=== PATIENT | female | born 1970 | race African-American/Black ===

== ENCOUNTER 2017-01-30 10:23 | Outpatient (CLI) | payer MEDICARE, MEDICAID ==
--- NOTE | 2017-01-30 13:44 | PRG ---
DATE OF SERVICE: 01/30/2017 HISTORY: Ms. Mouna Mitchell is a very pleasant 46-year-old who [facility] aluation of wounds of the right and left feet subsequent to amputation of the right first toe and me tatarsal in addition to the left fourth and fifth toes and metatarsals on 08/12/2015. On 11/18/2015 , Ms. Mitchell underwent amputation of the left second and third toes and metatarsals by Dr. Cedeno. The patient states that she has not been able to stay off her feet as much as she would like. She a lso states that she ran out of Multidex powder for use at the time of dressing changes. The patient denies any fever or chills. PHYSICAL EXAMINATION: VITAL SIGNS: Temperature 98.6, pulse 99, respirations 18, blood pressure 135/84, Accu-Chek 249. EXTREMITIES: A wound of the right foot is present which measures approximately 3.7 x 4.0 cm. A wou nd of the left foot is present which measures approximately 6.0 x 2.5 cm. The dimensions of these w ounds at the time of the patient's last visit were approximately 2.8 x 3.5 cm and 2.4 x 4.0 cm respe ctively. Both wounds are granulating. Nonviable tissue present within the margins of each wound wa s debrided with an excisional full-thickness debridement. Callus undermining and desiccated tissue at the periphery of each wound were eliminated with the use of scissors. No purulent drainage is as sociated with either wound. No erythema of the skin surrounding either wound is present. No macera tion of the skin of the periwound of either wound is noted. A dorsalis pedis pulse is palpable on t he right and on the left. Edema of the right and left feet is present on exam today. ASSESSMENT AND PLAN: 1. Wounds of right and left feet subsequent to surgery on 08/12/2015, followed by Surgery on 2015. Specifically, the patient underwent amputation of the right first toe and metatarsal and ampu tation of the left fourth and fifth toes and metatarsals on 08/12/2015, and amputation of the left s econd and third toes and metatarsals on 11/18/2015. Dressing changes of Multidex powder, 4 x 4s, AB Ds, Kerlix, and Oz bandages will be continued on a daily basis after cleansing and irrigation. The patient has been given a prescription for a motorized wheelchair. The patient is also in the proce ss of obtaining diabetic shoes with inserts. I will see Ms. Mitchell again in four weeks. 2. Diabetes mellitus. The patient's Accu-Chek in clinic today is 249. The patient has been remind ed that for optimal wound healing, her blood glucoses should remain below 150. 3. History of hypothyroidism. 4. History of obstructive sleep apnea. 5. History of hypertension.
[2017-01-30] MEDS ORDERED: Sodium Chloride 0.9% 15 ML NEB ONE (17:26)
[2017-01-30] MEDS ORDERED: Lidocaine 2% Jelly 5 ML TUBE ONE (17:26)
== END 2017-01-30 10:24 | disposition home or self-care (01) ==
LOC: WCC 10:23
PROVIDERS: ATTEND Family Medicine
DX: T81.89XD Other complications of procedures, not elsewhere classified, subsequent encounter (principal); E11.9 Type 2 diabetes mellitus without complications; Z86.79 Personal history of other diseases of the circulatory system; Z86.39 Personal history of other endocrine, nutritional and metabolic disease; Z87.09 Personal history of other diseases of the respiratory system
CPT/HCPCS: 11042; 36416; A4218

== ENCOUNTER 2017-03-27 10:27 | Outpatient (CLI) | payer MEDICARE, OTHER ==
--- NOTE | 2017-03-27 14:40 | PRG ---
DATE OF SERVICE: 03/27/2017 SUBJECTIVE: Ms. Mouna Mitchell is a very pleasant 46-year-old who presents to [facility] for evaluation of wounds of the right and left feet subsequent to amputation of the right first toe and m etatarsal in addition to the left fourth and fifth toes and metatarsals on 08/12/2015. On 11/18/2015 , Ms. Mitchell underwent amputation of the left second and third toes and metatarsals by Dr. Cedeno. Kayce romano the patient's last visit, Ms. Mitchell as been performing dressing changes of Multidex powder for her right and left foot wounds. The patient has no complaints today. She denies any fever or chills . She states that she has been able to stay off her feet to a greater extent than in the past. OBJECTIVE: VITAL SIGNS: Temperature 97.7, pulse 101, respirations 19 and blood pressure 158/79. Accu-Chek 268. EXTREMITIES: A wound of the right foot is present, which measures approximately 4.0 x 2.7 cm. A wou nd of the left foot is present, which measures approximately 3.6 x 2.2 cm. The dimensions of these w ounds at the time of the patient's last visit were approximately 3.7 x 4.0 cm and 6.0 x 2.5 cm, respe ctively. Both wounds are granulating. Nonviable tissue present within the margins of each wound was debrided with an excisional full-thickness debridement with the use of a curette. Callus underminin g and desiccated tissue at the periphery of each wound were excised with the use of scissors. No pur ulent drainage is associated with either wound. No erythema of the skin surrounding either wound is present. No maceration of the skin of the periwound of either wound is noted. No significant edema of the right or left foot is present on exam today. ASSESSMENT AND PLAN: 1. Wounds of right and left feet subsequent to surgery on 08/12/2015, followed by Surgery on 016. Specifically, the patient underwent amputation of the right first toe and metatarsal and amputa tion of the left fourth and fifth toes and metatarsals on 08/11/2016 and amputation of the left secon d and third toes and metatarsals on 11/18/2015. Dressing changes of Multidex powder, 4 x 4s, ABDs, K erlix, and Oz bandages will be continued on a daily basis after cleansing and irrigation. The patie nt was previously given a prescription for a motorized wheelchair. The patient previously stated yulia t she was in the process of obtaining diabetic shoes with inserts. I will see Ms. Mitchell again in fo ur weeks. 2. Diabetes mellitus. The patient's Accu-Chek in clinic today is 268. The patient has been reminde d that for optimal wound healing, her blood glucoses should remain below 150. 3. History of hypothyroidism. 4. History of obstructive sleep apnea. 5. History of hypertension.
== END 2017-03-27 10:28 | disposition home or self-care (01) ==
LOC: WCC 10:27
PROVIDERS: ATTEND Family Medicine
DX: T81.89XD Other complications of procedures, not elsewhere classified, subsequent encounter (principal); E11.9 Type 2 diabetes mellitus without complications; Z89.411 Acquired absence of right great toe; Z89.422 Acquired absence of other left toe(s)
CPT/HCPCS: 11042; 36416

== ENCOUNTER 2017-04-29 10:51 | Outpatient (CLI) | payer MEDICARE, MEDICAID ==
[~2017-04-29 10:51] MED LIST: Sodium Chloride 0.9% 15 ML NEB ONE
--- NOTE | 2017-04-29 12:02 | PRG ---
DATE OF SERVICE: 04/29/2017 HISTORY: Ms. Mouna Mitchell is a very pleasant 46-year-old who presents to the [facility] for evaluation of wounds of the right and left feet subsequent to amputation of the right first toe and metatarsal in addition to the left fourth and fifth toes and metatarsals on 08/12/2015. On 11/18/2015, Ms. Mitchell underwent amputation of the left second and third toes and metatarsals by Dr. Cedeno. Since the patient's last visit, Ms. Mitchell has been performing dressing changes of Multidex powder for her right and left foot wounds. The patient states that she has been on her feet more than usual since the beginning of the year. The patient has no complaints today. She denies any fever or chills. PHYSICAL EXAMINATION: VITAL SIGNS: Temperature 98.0, pulse 109, respirations 19, blood pressure 159/ 72. Accu-Chek 158. EXTREMITIES: A wound of the right foot is present which measures approximately 4.0 x 2.5 cm. A wound of the left foot is present which measures approximately 5.0 x 3.0 cm. The dimensions of these wounds at the time of the patient's last visit were approximately 4.0 x 2.7 cm and 3.6 x 2.2 cm respectively. Both wounds are granulating. Nonviable tissue present within the margins of each wound was debrided with an excisional full-thickness debridement with the use of scissors. Callus, undermining, and desiccated tissue at the periphery of each wound were also excised with the use of scissors. No purulent drainage is associated with either wound. No erythema of the skin surrounding either wound is present. No maceration of the skin of the periwound of either wound is noted. No significant edema of the right or left foot is present on exam today. ASSESSMENT AND PLAN: 1. Wounds of right and left feet subsequent to surgery on 08/12/2015 followed by surgery on 11/18/2015. Specifically, the patient underwent amputation of the right first toe and metatarsal and amputation of the left fourth and fifth toes and metatarsals on 08/11/2016 and amputation of the left second and third toes and metatarsals on 11/18/2015. Dressing changes of Multidex powder, 4 x 4s , ABDs, Kerlix, and Oz bandages will be continued on a daily basis after cleansing and irrigation. Coban will also be utilized at the time of dressing changes as needed. The patient apparently has received a motorized wheelchair. The patient has also received diabetic shoes with inserts. I will see Ms. Mitchell again in four weeks. 2. Diabetes mellitus. The patient's Accu-Chek in clinic today is 158. The patient has been reminded that for optimal wound healing, her blood glucoses should remain below 150. 3. History of hypothyroidism. 4. History of obstructive sleep apnea. 5. History of hypertension. MTDD
== END 2017-04-29 10:52 | disposition home or self-care (01) ==
LOC: WCC 10:51
PROVIDERS: ATTEND Family Medicine
DX: T81.89XD Other complications of procedures, not elsewhere classified, subsequent encounter (principal); Z89.411 Acquired absence of right great toe; Z89.421 Acquired absence of other right toe(s)
CPT/HCPCS: 11042; A4218

== ENCOUNTER 2017-05-27 11:17 | Outpatient (CLI) | payer MEDICARE, OTHER ==
--- NOTE | 2017-05-27 13:27 | PRG ---
DATE OF SERVICE: 05/27/2017 SUBJECTIVE: Ms. Mouna Mitchell is a very pleasant 46-year-old who presents to the [facility] f or evaluation of wounds of the right and left feet subsequent to amputation of the right first toe an d metatarsal in addition to the left fourth and fifth toes and metatarsals on 08/12/2015. On 016, Ms. Mitchell underwent amputation of the left second and third toes and metatarsals by Dr. Cedeno. Since the patient's last visit, Ms. Mitchell has been performing dressing changes of Multidex powder for her right and left foot wounds. The patient states that she has been trying her best to stay off her feet as much as possible. The patient has no complaints today. She denies any fever or chills. OBJECTIVE: VITAL SIGNS: Temperature 97.7, pulse 95, respirations 18 and blood pressure 149/76. Accu-Chek 269. EXTREMITIES: A wound of the right foot is present, which measures approximately 4.0 x 2.4 cm. A wou nd of the left foot is present, which measures approximately 4.0 x 2.6 cm. The dimensions of these w ounds at the time of the patient's last visit were approximately 4.0 x 2.5 cm and 5.0 x 3.0 cm, respe ctively. Both wounds are granulating. Nonviable tissue present within the margins of each wound was debrided with an excisional full-thickness debridement with the use of a curette. Callus underminin g and desiccated tissue at the periphery of each wound were excised with the use of scissors. No pur ulent drainage is associated with either wound. No erythema of the skin surrounding either wound is present. No maceration of the skin of the periwound of either wound is noted. A dorsalis pedis puls e is palpable on the right and on the left. No significant edema of the right or left foot is presen t on exam today. ASSESSMENT AND PLAN: 1. Wounds of right and left feet subsequent to surgery on 08/12/2015 followed by Surgery on 11/18/19 16. Specifically, the patient underwent amputation of the right first toe and metatarsal and amputat ion of the left fourth and fifth toes and metatarsals on 08/11/2016 and an amputation of the left sec ond and third toes and metatarsals on 11/18/2015. Dressing changes of Multidex powder, 4 x 4s, Kerli x, and Oz bandages will be continued on a daily basis after cleansing and irrigation. ABDs will als o be utilized at the time of dressing changes as needed. I will see Ms. Mitchell again in four weeks. 2. Diabetes mellitus. The patient's Accu-Chek in clinic today is 269. The patient has been reminde d that for optimal wound healing, her blood glucoses should remain below 150. 3. History of hypothyroidism. 4. History of obstructive sleep apnea. 5. History of hypertension.
== END 2017-05-27 11:18 | disposition home or self-care (01) ==
LOC: WCC 11:17
PROVIDERS: ATTEND Family Medicine
DX: T81.89XD Other complications of procedures, not elsewhere classified, subsequent encounter (principal); E11.9 Type 2 diabetes mellitus without complications; Z89.411 Acquired absence of right great toe; Z89.422 Acquired absence of other left toe(s); Z86.39 Personal history of other endocrine, nutritional and metabolic disease; Z87.09 Personal history of other diseases of the respiratory system; Z86.79 Personal history of other diseases of the circulatory system
CPT/HCPCS: 11042

== ENCOUNTER 2017-06-24 10:56 | Outpatient (CLI) | payer MEDICARE, OTHER ==
[2017-06-24] MEDS ORDERED: Lidocaine 2% Jelly 5 ML TUBE ONE (11:00)
[2017-06-24] MEDS ORDERED: Sodium Chloride 0.9% 15 ML NEB ONE (11:00)
--- NOTE | 2017-06-25 08:41 | PRG ---
DATE OF SERVICE: 06/24/2017 HISTORY: Ms. Mouna Mitchell is a very pleasant 46-year-old who presents to the [facility] for evaluation of wounds of the right and left feet subsequent to amputation of the right first toe and metatarsal in addition to the left fourth and fifth toes and metatarsals on 08/12/2015. On 6, Ms. Mitchell underwent amputation of the left second and third toes and metatarsals by Dr. Cedeno. Since her last visit, Ms. Mitchell states, she has been performing dressing changes of Multidex powder for her right and left foot wounds. Again, the patient states that she has been trying her best to s karen off her feet as much as possible. Ms. Mitchell has no complaints today. She denies any fever or c hills. PHYSICAL EXAMINATION: VITAL SIGNS: Temperature 97.7, pulse 105, respirations 19, blood pressure 150/91. Accu-Chek 213. EXTREMITIES: A wound of the right foot is present which measures approximately 3.9 x 3.0 cm. The di mensions of this wound at the time of the patient's last visit were approximately 4.0 x 2.4 cm. A wo und of the left foot is present which measures approximately 4.9 x 3.2 cm. The dimensions of this wo und at the time of the patient's last visit were approximately 4.0 x 2.6 cm. Both wounds are granula ting. Nonviable tissue present within the margins of each wound was debrided with an excisional full -thickness debridement. Callus undermining and desiccated tissue at the periphery of each wound were excised with the use of scissors. No purulent drainage is associated with either wound. No erythem a of the skin surrounding either wound is present. No maceration of the skin of the periwound of eit her wound is noted. A dorsalis pedis pulse is palpable on the right and on the left. No significant edema of the right or left foot is present on exam today. ASSESSMENT AND PLAN: 1. Wounds of right and left feet subsequent to surgery on 08/12/2015 followed by Surgery on 11/18/19 16. Specifically, the patient underwent amputation of the right first toe and metatarsal and amputat ion of the left fourth and fifth toes and metatarsals on 08/12/2015 and amputation of the left second and third toes and metatarsals on 11/18/2015. Dressing changes of Multidex powder, 4 x 4s, Kerlix, and Oz bandages will be continued on a daily basis after cleansing and irrigation. ABDs will also b e utilized at the time of dressing changes as needed. I will see Ms. Mitchell again in 4 weeks. 2. Diabetes mellitus. The patient's Accu-Chek in clinic today is 213. The patient has been reminde d that for optimal wound healing, her blood glucoses should remain below 150. 3. History of hypothyroidism. 4. History of obstructive sleep apnea. 5. History of hypertension.
== END 2017-06-24 10:57 | disposition home or self-care (01) ==
LOC: WCC 10:56
PROVIDERS: ATTEND Family Medicine
DX: T87.89 Other complications of amputation stump (principal); E11.621 Type 2 diabetes mellitus with foot ulcer; E11.42 Type 2 diabetes mellitus with diabetic polyneuropathy; L97.509 Non-pressure chronic ulcer of other part of unspecified foot with unspecified severity; E03.9 Hypothyroidism, unspecified; I10 Essential (primary) hypertension; Z89.411 Acquired absence of right great toe; Z89.422 Acquired absence of other left toe(s); Z86.69 Personal history of other diseases of the nervous system and sense organs
CPT/HCPCS: 11042; 36416; A4218

== ENCOUNTER 2017-09-30 10:58 | Outpatient (CLI) | payer MEDICARE, OTHER ==
[~2017-09-30 10:58] MED LIST changes: +Lidocaine 2% Jelly 5 ML TUBE ONE
--- NOTE | 2017-09-30 12:48 | PRG ---
DATE OF SERVICE: 09/30/2017 HISTORY: Ms. oMuna Mitchell is a very pleasant 46-year-old who presents to the [facility] for evaluation of wounds of the right and left feet subsequent to amputation of the right first toe and metatarsal in addition to the left fourth and fifth toes and metatarsals on 08/12/2015. On 6, Ms. Mitchell underwent amputation of the left second and third toes and metatarsals by Dr. Cedeno. Since the patient's last visit, Ms. Mitchell states she has been performing dressing changes of Multide x powder for her right and left foot wounds. Again, the patient states that she has been trying to s karen off her feet as much as possible. The patient has no complaints today. She denies any fever or chills. PHYSICAL EXAMINATION: VITAL SIGNS: Temperature 97.5, pulse 101, respirations 20, blood pressure 139/87. Accu-Chek 239. EXTREMITIES: A wound of the right foot is present which measures approximately 3.7 x 2.5 cm. The di mensions of this wound at the time of the patient's last visit were approximately 3.9 x 3.0 cm. A wo und of the left foot is present which measures approximately 3.7 x 2.0 cm. The dimensions of this wo und at the time of the patient's last visit were approximately 4.9 x 3.2 cm. Both wounds are granula ting. Callus undermining and desiccated tissue at the periphery of each wound were excised with the use of scissors. Nonviable tissue present within the margins of each wound was debrided with an exci sional full-thickness debridement also with the use of scissors. No purulent drainage is associated with either wound. No erythema of the skin surrounding either wound is present. No maceration of th e skin of the periwound of either wound is noted. No significant edema of the right or left foot is present on exam today. A fragment of bone from within the wound margins of 1 of 2 left foot wounds w as excised with the use of scissors. ASSESSMENT AND PLAN: 1. Wounds of right and left feet subsequent to surgery on 08/12/2015 followed by Surgery on 11/18/19 16. Specifically, the patient underwent amputation of the right first toe and metatarsal and amputat ion of the left fourth and fifth toes and metatarsals on 08/12/2015 and amputation of the left second and third toes and metatarsals on 11/18/2015. Dressing changes of Multidex powder, 4 x 4s, ABDs, Ke rlix, and Oz bandages will be continued on a daily basis after cleansing and irrigation. I will see Ms. Mitchell again in 4 weeks. The patient has been given a prescription for a handicapped sticker. 2. Diabetes mellitus. The patient's Accu-Chek in clinic today is 239. The patient has been reminde d that for optimal wound healing, her blood glucoses should remain below 150. 3. History of hypothyroidism. 4. History of obstructive sleep apnea. 5. History of hypertension.
== END 2017-09-30 10:59 | disposition home or self-care (01) ==
LOC: WCC 10:58
PROVIDERS: ATTEND Family Medicine
DX: T81.89XD Other complications of procedures, not elsewhere classified, subsequent encounter (principal); E11.621 Type 2 diabetes mellitus with foot ulcer; E11.40 Type 2 diabetes mellitus with diabetic neuropathy, unspecified; Z89.422 Acquired absence of other left toe(s)
CPT/HCPCS: 11042; A4218

== ENCOUNTER 2017-10-28 10:58 | Outpatient (CLI) | payer MEDICARE, OTHER ==
--- NOTE | 2017-10-28 12:02 | PRG ---
DATE OF SERVICE: 10/28/2017 HISTORY: Ms. Mouna Mitchell is a very pleasant 46-year-old, who presents to the [facility] for evaluation of wounds of the right and left feet subsequent to amputation of the right first toe and metatarsal in addition to the left fourth and fifth toes and metatarsals on 08/12/2015. On 6, Ms. Mitchell underwent amputation of the left second and third toes and metatarsals by Dr. Cedeno. Since the patient's last visit, Ms. Mitchell states she has been performing dressing changes of Multide x powder for her right and left foot wounds. Again, Ms. Mitchell states that she has been trying to st ay off her feet as much as possible. The patient has no complaints today. She denies any fever or c hills. PHYSICAL EXAMINATION: VITAL SIGNS: Temperature 98.3, pulse 125, respirations 18, blood pressure 137/86. Accu-Chek 178. EXTREMITIES: A wound of the right foot is present, which measures approximately 3.5 x 3.0 cm. The d imensions of the wound at the time of the patient's last visit were approximately 3.7 x 2.5 cm. A wo und of the left foot is present, which measures approximately 3.0 x 2.0 cm. The dimensions of this w ound at the time of the patient's last visit were approximately 3.7 x 2.0 cm. Both wounds are granul ated. Callus and desiccated tissue at the periphery of each wound were excised with the use of sciss ors. Nonviable tissue present within the margins of each wound was debrided with an excisional full- thickness debridement with the use of a curette. No purulent drainage is associated with either woun d. No erythema of the skin surrounding either wound is present. No maceration of the skin of the pe riwound of either wound is noted. No significant edema of the right or left foot is present on exam today. ASSESSMENT AND PLAN: 1. Wounds of right and left feet subsequent to surgery on 08/12/2015, followed by surgery on 016. Specifically, the patient underwent amputation of the right first toe and metatarsal and amputa tion of the left fourth and fifth toes and metatarsals on 08/12/2015 and amputation of the left secon d and third toes and metatarsals on 11/18/2015. Dressing changes of Multidex powder, 4 x 4s, ABDs, K erlix, and Oz bandages will be continued on a daily basis after cleansing and irrigation. I will se e Ms. Mitchell again in 4 weeks. The patient was previously given a prescription for a handicapped sti cker. 2. Diabetes mellitus. The patient's Accu-Chek in clinic today is 178. The patient has been reminde d that for optimal wound healing, her blood glucoses should remain below 150. 3. History of hypothyroidism. 4. History of obstructive sleep apnea. 5. History of hypertension.
== END 2017-10-28 10:59 | disposition home or self-care (01) ==
LOC: WCC 10:58
PROVIDERS: ATTEND Family Medicine
DX: T81.89XD Other complications of procedures, not elsewhere classified, subsequent encounter (principal); E11.9 Type 2 diabetes mellitus without complications; Z86.39 Personal history of other endocrine, nutritional and metabolic disease; Z86.79 Personal history of other diseases of the circulatory system; Z87.09 Personal history of other diseases of the respiratory system; Z89.411 Acquired absence of right great toe; Z89.422 Acquired absence of other left toe(s)
CPT/HCPCS: 36416

== ENCOUNTER 2017-11-15 13:25 | Inpatient (IN) | payer MEDICARE, MEDICAID ==
[2017-11-15] MEDS ORDERED: Piperacillin/Tazobactam 4.5 GM VIAL ONE (15:33)
[2017-11-15] MEDS ORDERED: Sodium Chloride 0.9% 100 ML ONE (15:35)
[2017-11-15] MEDS ORDERED: Vancomycin HCl 1.5 GM in Sodium Chloride 0.9% 250 ML 300 ML IVPB SCH (15:45)
[2017-11-15 16:18] LABS: #Basophils 0.1 thou/uL (0.0-0.2); #Eosinphils 0.3 thou/uL (0.0-0.7); #Lymphocytes 2.5 thou/uL (1.20-3.40); #Neutrophils 12.2 thou/uL (1.40-6.50); %Basophils 0.4 % (0.0-1.0); %Eosinophils 2.1 % (0.0-10.0); %Lymphocytes 15.5 % (21.0-51.0); %Monocytes 6.2 % (0.0-10.0); %Neutrophils 75.8 % (42.0-75.0); Hemoglobin 10.7 g/dL (12.0-16.0); Mean Corpuscular HGB CONC 32.1 g/dL (32.0-36.0); Mean Corpuscular Hemoglobin 25.7 pg (27.0-31.0); Mean Corpuscular Volume 80.2 fL (78.0-98.0); Mean Platelet Volume 6.7 fL (7.4-10.4); Platelet Count 457 thou/uL (130-400); RBC Distribution Width 17.5 % (11.5-14.5); Red Blood Cell (RBC) Count 4.17 mill/uL (4.20-5.40)
[2017-11-15 16:46] LABS: ALT (SGPT) 14 U/L (8-55); AST (SGOT) 12 U/L (5-34); Albumin 3.7 g/dL (3.5-5.0); Alkaline Phosphatase 98 U/L (40-150); Anion Gap 15 mmol/L (10-20); BUN (Urea Nitrogen) 12 mg/dL (7.0-18.7); Bilirubin, Total 0.5 mg/dL (0.2-1.2); Calc. Creatinine Clearance 0 mL/min (70-130); Calcium 9.9 mg/dL (7.8-10.44); Carbon Dioxide 25 mmol/L (22-29); Chloride 96 mmol/L (98-107); Estimated GFR-MDRD 78; Globulin 4.8 g/dL (2.4-3.5); Glucose 253 mg/dL (70-105); Potassium 3.9 mmol/L (3.5-5.1); Protein, Total 8.5 g/dL (6.0-8.3); Sodium 132 mmol/L (136-145)
--- NOTE | 2017-11-15 17:14 | RAD ---
RADIOGRAPH RIGHT FOOT 3 VIEWS: DATE: 11/15/17 TIME: 4:32 p.m. HISTORY: 47-year-old female with skin lesion in right foot. Right foot pain. COMPARISON: 08/09/15. FINDINGS: New amputation at proximal/mid shaft of first metatarsal since the prior study. Old amputations at distal shafts of second and third metatarsals. New finding of complete disruption of the fourth MTP joint, now with absence of the proximal metaphys is of the fourth proximal phalanx, resulting in chronic medial displacement of the fourth toe relativ e to the fourth metatarsal. Fifth MTP joint and fifth toes remain. There is new soft tissue swelling of the medial aspect of the right midfoot. There is a new finding of obliteration of the second and third TMT joint spaces, probably representin g ankylosis. Interval increase in bony overgrowth along the dorsal surfaces of the midfoot now. IMPRESSION: 1. Soft tissue swelling of the foot medially. 2. Multiple amputations. 3. 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 POS: HOMERO
[2017-11-15] MEDS ORDERED: Clindamycin/D5W 900 mg/50 ml Premix Bag ONE (18:00)
[2017-11-15 21:07] VITALS: BMI 37.8
[2017-11-15] MEDS ORDERED: Mag-Al 1200 mg/1200 mg/30 ML UDCUP PO PRN (22:12)
[2017-11-15] MEDS ORDERED: Senokot 8.6 MG TAB PO PRN (22:12)
[2017-11-15] MEDS ORDERED: hydrOXYzine Pamoate 25 mg Capsule PO PRN (22:12)
[2017-11-15] MEDS ORDERED: Calcium Carbonate 500 MG ChewTAB PO PRN (22:12)
[2017-11-15] MEDS ORDERED: Bisacodyl 5 MG TAB PO PRN (22:12)
[2017-11-15] MEDS ORDERED: Diabetic Tussin 200 MG/10 ML UDCUP PO PRN (22:12)
[2017-11-15] MEDS ORDERED: Nitroglycerin 0.4 MG TAB (25 Tab Bottle) SL PRN (22:12)
[2017-11-15] MEDS ORDERED: Loratadine 10 MG TAB PO PRN (22:12)
[2017-11-15] MEDS ORDERED: Acetaminophen 325 MG TAB PO PRN (22:12)
[2017-11-15] MEDS ORDERED: cloNIDine 0.1 MG TAB PO PRN (22:12)
[2017-11-15] MEDS ORDERED: traMADol HCl 50 MG TAB PO PRN (22:12)
[2017-11-15] MEDS ORDERED: Ondansetron HCl/PF 4 MG/2 ML Vial IVP PRN (22:12)
[2017-11-15] MEDS ORDERED: hydrALAZINE 20 MG/ML VIAL SLOW IVP PRN (22:12)
[2017-11-15] MEDS ORDERED: Benzonatate 100 MG CAP PO PRN (22:12)
[2017-11-15] MEDS ORDERED: Dextrose 50% Abboject 50 ML SYRINGE SLOW IVP PRN (22:13)
[2017-11-15] MEDS ORDERED: Dextrose 5% in Water 1,000 ML IV PRN (22:13)
[2017-11-15] MEDS: Sodium Chloride 0.9% 1,000 ML IV SCH (22:23)
[2017-11-15] MEDS: HumaLOG 300 UNITS/3 ML VIAL SC PRN (23:07)
[2017-11-15] MEDS: HYDROcodone/Acetaminophen 5/325 mg Tablet PO PRN (23:07)
[2017-11-15] MEDS ORDERED: Piperacillin/Tazobactam 4.5 GM in Sodium Chloride 0.9% 100 ML IVPB SCH (23:59)
[2017-11-16] MEDS ORDERED: Acetaminophen/Codeine 30-300mg Tablet PO PRN (00:07)
--- NOTE | 2017-11-16 01:52 | HP ---
DATE OF ADMISSION: 11/15/2017 Please note that the patient was seen before midnight. PRIMARY CARE PHYSICIAN: Nicolas PAZ. CHIEF COMPLAINT: Swelling on the medial side of the foot with chronic bilateral feet wounds. HISTORY OF PRESENT ILLNESS: Ms. Mitchell is a 47-year-old female with past medical history of chronic bilateral feet wounds on chronic wound care as well as diabetes, obesity, hypertension, who presented to the emergency room with above-mentioned complaint. History is mainly obtained with the patient h erself and electronic medical records have been reviewed. The patient was last admitted to our [facility] in 02/2016. At that time, she was admitted for urinary tract infection, bilateral feet ulcers an d underwent debridement by Dr. Cedeno. The patient reports that she is following up with [facility] [place] and her wounds actu ally have gotten much better. She reports that they have decreased in size significantly. Earlier this morning when she woke up, she found out that she has some swelling on the medial aspect of her right foot. She denies any traumas. The swelling got significantly bigger and it looked like a blister, so she came to the emergency room. She did not have any significant drainage from the bl ister at that time. Later when she came to the ER and went on walking inside and tried to put her sh oe on, the blister burst and had significant amount of drainage. She reports that as soon as she was started on antibiotics in the ER. The blister started to drain some more. She denies any fever or chills. She denies any pain. She denies any recent illnesses. On presentation to the ER, her blood pressure was 139/67 with a pulse of 128. She underwent a genera l evaluation, which shows findings of 4-cm fluctuant area to the right instep, 1 cm posterior to the foot wound. Diminished pedal pulses were found. She was found to have some edema to the right lower extremity as well. X-ray of the foot was done, which was negative for any dislocation or fracture. Soft tissue swelling was seen. She received vancomycin in the ER, even though she has allergy liste d to it. She promptly developed hives, secondary to it and it was stopped and in turn, she received clindamycin with Zosyn afterwards. She is now being admitted for cutaneous abscess and possible cell ulitis. Her blood work done in the ER today, it is consistent with leukocytosis with neutrophilia. She has elevated ESR and CRP. Her blood sugars 253. The patient reports compliance with all of her medications. PAST MEDICAL HISTORY: 1. Diabetes mellitus type 2, recurrent diabetic foot ulcer with history of osteomyelitis in 2016, re quiring surgery. 2. Hypertension. 3. Dyslipidemia. 4. Hypothyroidism. 5. Obesity. 6. Bipolar disorder. 7. History of clavicular osteomyelitis, requiring IV antibiotics in the past. PAST SURGICAL HISTORY: 1. Multiple foot surgeries. 2. Bilateral tubal ligation. 3. section. 4. Cyst removal from her back. ALLERGIES: PEPE INHIBITOR and VANCOMYCIN. SOCIAL HISTORY: She smokes about half pack per day. No history of drug or alcohol abuse. FAMILY HISTORY: No significant inheritable diseases run in her family except for diabetes in some fa red members. CURRENT MEDICATIONS: Include Tylenol with codeine No. 3 every 4 hours as needed, multivitamin daily, ferrous sulfate 325 mg daily, and Levemir 45 units daily. REVIEW OF SYSTEMS: Twelve-point review of systems was done. It is negative except for those mention ed in the history and physical. LABORATORY AND DIAGNOSTIC DATA: CBC shows WBCs of 16 with 75% neutrophils, hemoglobin 10.7, platelet count of 457,000. ESR 118. CRP 26. Serum chemistry rather unremarkable, blood sugar 253, lactic a kusum normal. X-ray of the foot on the right side is reviewed by myself. There is no evidence of any significant fracture. Soft tissue swelling of the foot medially is seen and the multiple amputations are noticed. Second and third tarsometatarsal joint show ankylosis by radiologist. PHYSICAL EXAMINATION: VITAL SIGNS: Most recent vital signs, temperature 98.7, heart rate 104, respirations 18, saturating 96% on room air, blood pressure 147/88. No acute distress, awake, alert, oriented x3. HEENT: Mucous membrane is moist and pink. No oropharyngeal exudate or erythema. Head is normocepha lic, atraumatic. Pupils are equal, reactive to light and accommodation. Extraocular movement intact . NECK: Supple without any lymphadenopathy, JVD, or bruit. CHEST: Clear to auscultation without any wheezing, rales, or rhonchi. Rate and rhythm is regular wi thout any murmur, rubs, or gallops. ABDOMEN: Soft, nontender, nondistended. EXTREMITIES: Both feet are wrapped in dressing at this time. Wound photos are noticed. There is no significant edema on my examination. No evidence of cellulitis in her feet upwards and undressed pa rt. Pedal pulses are not felt very effectively mainly because of the dressing as well. NEUROLOGICAL: Nonfocal. SKIN: Free of any rashes or bruises. I feel warm and dry to touch. PSYCHIATRIC: Normal affect. IMPRESSION AND PLAN: 1. Right foot wound and blister. We will consult Wound Care and continue IV antibiotics given the f act that the patient is a poorly controlled diabetic with multiple feet ulcers over the course of yea rs. We will request consultation with Dr. Cedeno in case she needs I&D. The patient is very relucta nt to get any more amputations at this time if recommended. We will go ahead and obtain an arterial Doppler ultrasound to assess vasculature as well. She had an arterial Doppler done in 07/2015 and at that time, her ankle brachial index was 1.45. 2. Sepsis, likely secondary to lower extremity wound infection. Continue IV antibiotics and follow the culture results. Blood cultures were obtained in the emergency room. 3. Hypertension, currently controlled. We will add p.r.n. medications. The patient does not seem t o be taking any medications at home. Start new medicines as needed. 4. Diabetes mellitus. Resume Levemir and add insulin sliding scale for further control. 5. Chronic lower extremity feet ulcerations. The patient will continue to follow up with [facility] in the outpatient setting. 6. Deep venous thrombosis and gastrointestinal prophylaxis. 7. P.r.n. medication orders. 8. Code status: FULL CODE. Discussed with the patient. DISPOSITION: Ms. Mitchell is currently being admitted to the medical floor for wound infection of the foot. Likely diabetic versus vascular. Estimated length of stay at least 2-3 midnight. Further man agement will depend upon her clinical course.
[2017-11-16] MEDS ORDERED: Clindamycin/D5W 900 MG in Premix Bag 1 BAG IVPB SCH (02:00)
[2017-11-16 05:48] LABS: #Basophils 0.1 thou/uL (0.0-0.2); #Eosinphils 0.5 thou/uL (0.0-0.7); #Lymphocytes 2.9 thou/uL (1.20-3.40); #Monocytes 0.9 thou/uL (0.11-0.59); %Basophils 0.7 % (0.0-1.0); %Eosinophils 3.8 % (0.0-10.0); %Lymphocytes 23.1 % (21.0-51.0); %Monocytes 7.6 % (0.0-10.0); %Neutrophils 64.9 % (42.0-75.0); Hemoglobin 10.2 g/dL (12.0-16.0); Mean Corpuscular Hemoglobin 25.4 pg (27.0-31.0); Mean Platelet Volume 7.1 fL (7.4-10.4); Platelet Count 412 thou/uL (130-400); RBC Distribution Width 17.3 % (11.5-14.5); Red Blood Cell (RBC) Count 4.03 mill/uL (4.20-5.40); White Blood Cell (WBC) Count 12.3 thou/uL (4.8-10.8)
[2017-11-16 05:55] LABS: Anion Gap 15 mmol/L (10-20); BUN (Urea Nitrogen) 11 mg/dL (7.0-18.7); Calc. Creatinine Clearance 179 mL/min (70-130); Calcium 9.4 mg/dL (7.8-10.44); Carbon Dioxide 23 mmol/L (22-29); Chloride 101 mmol/L (98-107); Estimated GFR-MDRD Greater than 90; Glucose 216 mg/dL (70-105); Potassium 3.9 mmol/L (3.5-5.1); Sodium 135 mmol/L (136-145)
[2017-11-16] MEDS: Sodium Chloride 0.9% 1,000 ML IV SCH (06:32)
[2017-11-16] MEDS: Famotidine 20 MG TAB PO SCH ×3 (08:59→20:47)
[2017-11-16] MEDS: Ferrous Sulfate 325 MG TAB PO SCH ×2 (09:00→10:15)
[2017-11-16] MEDS: Enoxaparin Sodium 40 MG/0.4 ML SYRINGE SC SCH ×2 (09:00→10:16)
[2017-11-16] MEDS ORDERED: Non-Formulary Item 1 EACH (Insulin Detemir 100 Units/Ml [Levemir] 45 UNITS) SC SCH (09:00)
[2017-11-16] MEDS: Multivit, Therapeutic 1 TAB PO SCH ×2 (09:00→10:16)
[2017-11-16] MEDS: Insulin Glargine 45 UNITS in Pre-Filled Syringe 1 EACH SC SCH ×2 (09:38→10:06)
[2017-11-16] MEDS: HYDROcodone/Acetaminophen 5/325 mg Tablet PO PRN ×3 (10:15→18:11)
[2017-11-16] MEDS ORDERED: Sodium Hypochlorite 0.25% Solution 480 ML BOT TOP SCH (10:30)
--- NOTE | 2017-11-16 10:38 | PDOC.EVN ---
Event Note - Event Note Event Note: Chart reviewed. Patient examined. Has two deep, large ulcerations of the right plantar foot. Clearly not articulating well. Has orthotic inserts, but is shuffling them from one pair of shoes to the other. Has foul smelling ulcers on exam. Some necrotic margins. History of MSSA and pseudomonas on previous cultures, but may have just been topical swabs. Will continue with the Zosyn, get wound care and surgery input.
[2017-11-16] MEDS: HumaLOG 300 UNITS/3 ML VIAL SC PRN ×3 (12:27→20:45)
[2017-11-16] MEDS: Piperacillin/Tazobactam 3.375 GM in Sodium Chloride 0.9% 100 ML IVPB SCH ×2 (12:30→17:45)
--- NOTE | 2017-11-16 12:48 | ULT ---
BILATERAL LOWER EXTREMITY ARTERIAL DOPPLER EVALUATION WITH SPECTRAL ANALYSIS AND COLORFLOW EVALUATION : 11/16/2017 HISTORY: Chronic bilateral feet ulcers. Diabetic. TECHNIQUE: Oscar-scale, color-flow, Doppler evaluation, and spectral analysis of the bilateral lower extremity ar terial vessels is performed with 2D imaging. FINDINGS: The right lower extremity demonstrates triphasic wave-forms within the right common femoral, superfic ial femoral, and popliteal arteries. Nonspecific mildly elevated peak systolic velocity is present i n the right common femoral artery. The right lower extremity anterior tibial artery is not visualize d. There are monophasic wave-forms and decreased peak systolic velocities within the posterior tibia l and dorsalis pedis arteries, suggesting atherosclerotic disease peripherally. Biphasic wave-form i s seen in the right profunda femoral artery. The left lower extremity demonstrates triphasic wave-forms within the left lower extremity common fem oral, superficial femoral, and popliteal arteries, as well as the posterior tibial artery. The anterior tibial artery on the left is not visualized. There is triphasic wave-form in the left l ower extremity posterior tibial artery. There is monophasic wave-form in the left lower extremity do rsalis pedis artery. IMPRESSION: Findings suggestive of atherosclerotic vascular disease involving the anterior tibial and right lower extremity posterior tibial arteries, as well as the dorsalis pedis arteries bilaterally. Findings a re suggestive of peripheral vascular disease, below the level of the knees, bilaterally. POS: HOMERO
[2017-11-17] MEDS: Piperacillin/Tazobactam 3.375 GM in Sodium Chloride 0.9% 100 ML IVPB SCH ×4 (00:22→17:07)
[2017-11-17] MEDS: HYDROcodone/Acetaminophen 5/325 mg Tablet PO PRN ×3 (01:01→20:41)
--- NOTE | 2017-11-17 03:04 | CON ---
DATE OF CONSULTATION: 11/16/2017 REASON FOR CONSULTATION: Infected right foot with sepsis. HISTORY OF PRESENT ILLNESS: Ms. Mitchell is a 47-year-old woman with poorly controlled diabetes and se tima peripheral neuropathy who has undergone bilateral transmetatarsal amputations by Dr. Cedeno. [place] has some chronic wounds for which she is being followed at the [facility] at the transmetata rsal amputation sites and she reports that these have been decreasing in size; however, she noticed a blister on her right medial foot 2 days ago and on the day of her admission, she noticed that the bl ister had gotten much larger and started to drain some foul smelling fluid. She denies any trauma to the area, although she has been driving a lot recently with her shoes on. She denies fevers, chills or pain. On admission through the emergency room, she was found to have tachycardia and leukocytosi s with an elevated C-reactive protein. PAST MEDICAL HISTORY: Poorly controlled diabetes with neuropathy and multiple diabetic foot infectio ns, hypertension, hyperlipidemia, hypothyroidism, obesity, bipolar disorder. PAST SURGICAL HISTORY: Multiple foot surgeries including left transmetatarsal amputation and right t ransmetatarsal amputation of first through third toes. She has also had C-sections and tubal ligatio ns. ALLERGIES: She reports allergies to PEPE INHIBITOR and VANCOMYCIN. SOCIAL HISTORY: The patient is still smoking, but does not have any history of drug or alcohol abuse . FAMILY HISTORY: Diabetes. OUTPATIENT MEDICATIONS: Include multivitamin, Levemir, iron, and Tylenol with Codeine. REVIEW OF SYSTEMS: Ten-system review of systems is negative except per HPI. LABORATORY DATA: White count is elevated at 12.3, this is down somewhat from admission of 16; hemato crit is 33; and platelets 412. Electrolytes are unremarkable. Blood sugars have ranged from 216-251 . C-reactive protein is 26. Foot x-ray of the right foot reveals multiple amputations, soft tissue swelling on the medial aspect of the right mid foot and ankylosis of the second and third tarsometata rsal joints. It also appears that her metatarsophalangeal joint is completely disrupted on the fourt h toe. PHYSICAL EXAMINATION: VITAL SIGNS: The patient has been afebrile since her admission, heart rate 90, respirations 20, 100% saturated on room air, blood pressure 136/72. GENERAL: Reveals a healthy appearing woman in no acute distress. She is not flushed or toxic in raul earance. She is not jaundiced or icteric. HEENT: Unremarkable. NECK: Supple, without lymphadenopathy or thyroid nodules. HEART: Regular in its rate and rhythm without murmurs, rubs or gallops. LUNGS: Clear to auscultation. ABDOMEN: Soft, nontender, nondistended. EXTREMITIES: Warm and well perfused with normal dorsalis pedis pulses, although I do not appreciate posterior tibial pulses. She has a chronic granulating wound of the left transmetatarsal amputation site with no expressible purulence. She has loss of the arch bilaterally on her feet consistent with developing Charcot foot. She has healing right first through third toe amputations with a chronic g ranulating wound which appears healthy. There is a large blister over the right medial foot, which h as very foul smelling fluid expressible from a small drainage point superiorly. Recommendation was m judit to debride this blister to examine the underlying tissues and I suspect that there may be a press ure ulcer below the blister. This was done with the patient's consent. The medial foot was prepped with Betadine and the overlying blister excised sharply with scissors. This revealed an oval-shaped area of necrotic skin which was boggy and foul smelling. This was swabbed and sent for culture. The necrotic skin was then sharply excised with scissors and the underlying subcutaneous tissues debride d sharply until viable appearing tissue was encountered. There was some tunneling anteriorly, supervisor polishing iorly, and superiorly, but the wound did not connect with the other wounds noted a probe to bone or j oint. The dermis appeared to be intact and viable. Over the remainder of the blistered area with th e exception of the oval shaped area of full-thickness necrosis medially. This was approximately 2 x 3 cm. The wound was dressed with wet to dry Dakin's gauze. I will continue to follow this patient w ith the wound care team and surgically debride the wound as necessary.
[2017-11-17] MEDS: HumaLOG 300 UNITS/3 ML VIAL SC PRN ×3 (06:28→17:07)
[2017-11-17] MEDS: Famotidine 20 MG TAB PO SCH ×2 (09:01→20:44)
[2017-11-17] MEDS: Ferrous Sulfate 325 MG TAB PO SCH (09:01)
[2017-11-17] MEDS: Enoxaparin Sodium 40 MG/0.4 ML SYRINGE SC SCH (09:01)
[2017-11-17] MEDS: Multivit, Therapeutic 1 TAB PO SCH (09:01)
[2017-11-17] MEDS: Sodium Hypochlorite 0.25% Solution 480 ML BOT TOP SCH (09:02)
[2017-11-17] MEDS: Insulin Glargine 45 UNITS in Pre-Filled Syringe 1 EACH SC SCH (09:54)
--- NOTE | 2017-11-17 10:31 | PDOC.PN ---
- Subjective Encounter Start Date: 11/17/17 Encounter Start Time: 10:42 Feels well today. No complaints other than concerns regarding some chronic constipation related to pain meds. Has used stool softeners in the past, but occasionally gets loose stools with that. - Objective Vital Signs & Weight: Vital Signs (12 hours) Temp Pulse Resp BP Pulse Ox 11/17/17 07:52 97.8 F 84 16 126/71 99 Weight Admit Weight 271 lb Weight 271 lb 2 oz I&O: 11/16/17 11/17/17 11/18/17 06:59 06:59 06:59 Intake Total 2160 Balance 2160 Result Diagrams: 11/16/17 04:24 11/16/17 04:24 Additional Labs: Accuchecks 11/17/17 11/16/17 11/16/17 04:15 19:44 16:25 POC Glucose 165 H 222 H 188 H 11/16/17 11:05 POC Glucose 221 H Dx/Plan (1) Bipolar disorder Code(s): F31.9 - BIPOLAR DISORDER, UNSPECIFIED Status: Chronic Qualifiers: (2) DM type 2 (diabetes mellitus, type 2) Status: Chronic Comment: Blood sugars a little high. Continue home regimen and ISS. (3) Diabetic foot ulcer Code(s): E11.621 - TYPE 2 DIABETES MELLITUS WITH FOOT ULCER; L97.509 - NON- PRESSURE CHRONIC ULCER OTH PRT UNSP FOOT W UNSP SEVERITY Status: Chronic (4) Hypertension Code(s): I10 - ESSENTIAL (PRIMARY) HYPERTENSION Status: Chronic Qualifiers: Comment: Continue home meds. (5) Obesity Code(s): E66.9 - OBESITY, UNSPECIFIED Status: Chronic Qualifiers: Obesity type: due to excess calories Body mass index: BMI 45.0-49.9 (6) Constipation due to pain medication therapy Code(s): K59.03 - DRUG INDUCED CONSTIPATION Status: Acute (7) PVD (peripheral vascular disease) Code(s): I73.9 - PERIPHERAL VASCULAR DISEASE, UNSPECIFIED Status: Acute - Plan * Wound was debrided yesterday. Blood cultures negative thus far. Will await negative blood cultures at 48 hours. Anticipate she will be able to discharge as early as tomorrow with oral antibiotics and outpatient follow up with wound care and surgery. Wound culture is growing Strep. WBC improved. * On good bowel regimen for opioid induced constipation.
--- NOTE | 2017-11-17 15:48 | PDOC.GSPN ---
Surgery Progress Note: Subj - Subjective Narrative: Patient is okay. Not complaining of any pain in her foot. Gram stain from yesterday show gram-positive cocci in pairs, chains and clusters, gram-positive rods, gram-negative rods. Culture Ellis strep so far. Her wound is ditch cleaner today although still slightly malodorous. No expressible purulence. Assessment/plan: Right foot abscess. Adequately debrided. Continue wet to dry Dakin's dressings and antibiotics. I will follow with wound care team Surgery Progress Note: Obj - Vital signs Vital signs: Vital Signs - Most Recent Temp Pulse Resp BP Pulse Ox 97.8 F 84 16 126/71 99 11/17/17 08:00 11/17/17 08:00 11/17/17 08:00 11/17/17 07:52 11/17/17 08:00 Surgery Progress Note: Results - Labs Result Diagrams: 11/16/17 04:24 11/16/17 04:24 Lab results: Laboratory Results - last 24 hr 11/17/17 11/17/17 04:15 11:11 POC Glucose 165 H 170 H
[2017-11-18] MEDS: Piperacillin/Tazobactam 3.375 GM in Sodium Chloride 0.9% 100 ML IVPB SCH ×4 (00:29→17:04)
[2017-11-18 06:14] LABS: #Eosinphils 0.6 thou/uL (0.0-0.7); #Lymphocytes 2.9 thou/uL (1.20-3.40); #Monocytes 0.8 thou/uL (0.11-0.59); #Neutrophils 5.2 thou/uL (1.40-6.50); %Lymphocytes 30.1 % (21.0-51.0); %Monocytes 8.6 % (0.0-10.0); %Neutrophils 55.4 % (42.0-75.0); Hemoglobin 10.2 g/dL (12.0-16.0); Mean Corpuscular HGB CONC 32.4 g/dL (32.0-36.0); Mean Corpuscular Hemoglobin 26.3 pg (27.0-31.0); Mean Platelet Volume 6.5 fL (7.4-10.4); Platelet Count 448 thou/uL (130-400); RBC Distribution Width 17.2 % (11.5-14.5); Red Blood Cell (RBC) Count 3.89 mill/uL (4.20-5.40); White Blood Cell (WBC) Count 9.5 thou/uL (4.8-10.8)
[2017-11-18 06:21] LABS: Anion Gap 13 mmol/L (10-20); BUN (Urea Nitrogen) 7 mg/dL (7.0-18.7); Calc. Creatinine Clearance 179 mL/min (70-130); Calcium 9.6 mg/dL (7.8-10.44); Carbon Dioxide 29 mmol/L (22-29); Chloride 99 mmol/L (98-107); Estimated GFR-MDRD Greater than 90; Glucose 137 mg/dL (70-105); Potassium 4.1 mmol/L (3.5-5.1); Sodium 137 mmol/L (136-145)
[2017-11-18] MEDS: Enoxaparin Sodium 40 MG/0.4 ML SYRINGE SC SCH (08:25)
[2017-11-18] MEDS: Ferrous Sulfate 325 MG TAB PO SCH (08:25)
[2017-11-18] MEDS: Multivit, Therapeutic 1 TAB PO SCH (08:28)
[2017-11-18] MEDS: Famotidine 20 MG TAB PO SCH (08:28)
[2017-11-18] MEDS: Insulin Glargine 45 UNITS in Pre-Filled Syringe 1 EACH SC SCH (08:33)
[2017-11-18] MEDS: Sodium Hypochlorite 0.25% Solution 480 ML BOT TOP SCH (08:39)
[2017-11-18] MEDS: HYDROcodone/Acetaminophen 5/325 mg Tablet PO PRN ×2 (09:01→17:02)
[2017-11-18] MEDS: HumaLOG 300 UNITS/3 ML VIAL SC PRN (17:03)
[2017-11-18 18:08] VITALS: BP 154/95; TEMP 98.5
--- NOTE | 2017-11-19 10:34 | PRG ---
DATE OF SERVICE: 11/18/2017 Ms. Mitchell was seen wound care team today. She is feeling better. The wound is no longer altaf dorous and has good bed, granulating tissue. There is a small amount of necrotic subcutaneous fat an d skin inferiorly, which was sharply excised back to viable tissue. We are going to transition her t o Medihoney dressing. I will continue to see her with wound care team. She can follow up in the [facility] upon discharge as she has been doing.
== END 2017-11-18 18:23 | disposition home health service (06) | DRG 855 ==
LOC: ERS 13:25 → T4-A 20:52
PROVIDERS: ADMIT Family Medicine; ATTEND Family Medicine
PROC: 0JBQ0ZZ Excision of Right Foot Subcutaneous Tissue and Fascia, Open Approach (ICD-10-PCS; principal; 2017-11-16)
DX: A41.9 Sepsis, unspecified organism (principal); F31.9 Bipolar disorder, unspecified; E11.621 Type 2 diabetes mellitus with foot ulcer; L97.519 Non-pressure chronic ulcer of other part of right foot with unspecified severity; I10 Essential (primary) hypertension; K59.03 Drug induced constipation; E11.51 Type 2 diabetes mellitus with diabetic peripheral angiopathy without gangrene; Z79.4 Long term (current) use of insulin; E11.40 Type 2 diabetes mellitus with diabetic neuropathy, unspecified; Z89.422 Acquired absence of other left toe(s); Z89.421 Acquired absence of other right toe(s); E78.5 Hyperlipidemia, unspecified; E03.9 Hypothyroidism, unspecified; E66.9 Obesity, unspecified; Z68.37 Body mass index [BMI] 37.0-37.9, adult; F17.210 Nicotine dependence, cigarettes, uncomplicated; B95.4 Other streptococcus as the cause of diseases classified elsewhere
CPT/HCPCS: 36415; 36416; 80048; 80053; 83605; 85025; 85652; 86140; 87040; 87070; 87077; 87205; 93923; 96361; 96365; 96367; A4216; J1650; J2543; J3370; J3490; J7050

== ENCOUNTER 2017-12-19 11:17 | Outpatient (CLI) | payer MEDICARE, OTHER ==
[2017-12-19] MEDS ORDERED: Lidocaine 2% Jelly 5 ML TUBE ONE (12:38)
[2017-12-19] MEDS ORDERED: Sodium Chloride 0.9% 15 ML NEB ONE (12:38)
--- NOTE | 2017-12-19 12:57 | PRG ---
DATE OF SERVICE: 12/19/2017 HISTORY: Ms. Mouna Mitchell is a very pleasant 47-year-old who presents to the Wound Center for evaluation of multiple wounds of the right and left feet. The patient was recently admitted to [facility] for a diabetic foot infection on the right. During the patient's hospit al stay, Ms. Mitchell underwent debridement of a new wound of the right foot at bedside. The patient c ontinues to perform her own dressing changes. Ms. Mitchell has no complaints today. She denies any fe rosario or chills. She states that she tries to stay off her feet as much as possible. PHYSICAL EXAMINATION: VITAL SIGNS: Temperature 98.4, pulse 114, respirations 23, blood pressure 138/87. Accu-Chek 200. EXTREMITIES: Two wounds of the right foot are present which measure approximately 2.5 x 3.8 cm and 3 .6 x 2.5 cm. The wound of the plantar surface of the right forefoot is granulating. Nonviable tissu e present within the wound margins was debrided with an excisional full-thickness debridement with th e use of a curette. Callus and desiccated tissue at the periphery of the wound were excised with the use of scissors. No purulent drainage is associated with the wound. No erythema of the skin surrou nding the wound is present. A green discoloration of the periwound is, however, noted on exam today. No maceration of the skin of the periwound is noted. No significant edema of the right foot is pre sent on today's exam. A wound of the plantar surface of the left foot is present which measures appr oximately 2.2 x 1.8 cm. Granulation tissue is present within the wound margins. Necrotic and nonvia ble tissue present within the wound margins was debrided with an excisional full-thickness debridemen t with the use of a curette. Callus and desiccated tissue at the periphery of the wound were also ex cised with the use of scissors. No purulent drainage is associated with the wound. No erythema of t he skin surrounding the wound is present. No maceration of the skin of the periwound is noted. No s ignificant edema of the left foot is present on today's exam. ASSESSMENT AND PLAN: 1. Wounds of right and left feet as described above. Dressing changes of Xeroform gauze, ABDs, Kerl ix, and Oz bandages will be initiated today. These dressing changes are to be performed on a daily basis after cleansing and irrigation. I will see Ms. Mitchell again in four weeks. The patient has be en given a prescription for ciprofloxacin 500 mg #20 one p.o. b.i.d. x10 days in view of the green di scoloration of the periwound of the right plantar forefoot ulceration noted on exam today. 2. Diabetes mellitus. Patient's Accu-Chek in clinic today is 200. The patient has been reminded th at for optimal wound healing, her blood glucoses should remain below 150. 3. History of hypothyroidism. 4. History of obstructive sleep apnea. 5. History of hypertension.
== END 2017-12-19 11:18 | disposition home or self-care (01) ==
LOC: WCC 11:17
PROVIDERS: ATTEND Family Medicine
DX: E11.621 Type 2 diabetes mellitus with foot ulcer (principal); L97.529 Non-pressure chronic ulcer of other part of left foot with unspecified severity; L97.519 Non-pressure chronic ulcer of other part of right foot with unspecified severity; Z86.39 Personal history of other endocrine, nutritional and metabolic disease; Z86.79 Personal history of other diseases of the circulatory system
CPT/HCPCS: A4218

== ENCOUNTER 2018-01-23 11:36 | Outpatient (CLI) | payer MEDICARE, OTHER ==
--- NOTE | 2018-01-23 15:22 | PRG ---
DATE OF SERVICE: 01/23/2018 HISTORY: Ms. Mouna Mitchell is a very pleasant 47-year-old who presents to the Wound Center for evaluation of multiple wounds of the right and left feet. The patient was recently admitted to [facility] for diabetic foot infection on the right. During the patient's hospital stay, Ms. Mitchell underwent debridement of a new wound of the right foot at bedside. The patient sta gricel that since her last visit to the Wound Center, she has been performing dressing changes of Xerofo rm gauze as prescribed. The patient has no complaints today. She denies any fever or chills. PHYSICAL EXAMINATION: VITAL SIGNS: Temperature 98.3, respirations 18, blood pressure 141/77. EXTREMITIES: Two wounds of the plantar surface of the right foot are present. One wound of the plan tar surface of the left foot is present. Granulation tissue is present within the margins of each wo und. Nonviable tissue present within the margins of each wound was debrided with an excisional full- thickness debridement. Callus, desiccated tissue and undermining associated with each wound were savannah minated with the use of scissors. No purulent drainage is associated with any of the wounds. No tony thema of the skin surrounding any of the wounds is present. No maceration of the skin of the periwou nd of any of the wounds is noted. No significant edema of the right or left foot is present on exam today. ASSESSMENT AND PLAN: 1. Wounds of right and left feet as described above. Dressing changes of Xeroform gauze, ABDs, Kerl ix and Oz bandages will be initiated today. These dressing changes are to be performed on a daily b asis after cleansing and irrigation. I will see Ms. Mitchell again in four weeks. The patient complai ns of significant pain associated with her wounds and Ms. Mitchell has been given a prescription for Ty lenol No. 3, number 30, 1 to 2 p.o. q.4-6 hours p.r.n. pain. 2. Diabetes mellitus. Accu-Cheks will be obtained at the time of the patient's clinic visits. The patient has been reminded that for optimal wound healing, her blood glucoses should remain below 150. 3. History of hypothyroidism. 4. History of obstructive sleep apnea. 5. History of hypertension.
== END 2018-01-23 11:37 | disposition home or self-care (01) ==
LOC: WCC 11:36
PROVIDERS: ATTEND Family Medicine
DX: E11.621 Type 2 diabetes mellitus with foot ulcer (principal); L97.529 Non-pressure chronic ulcer of other part of left foot with unspecified severity; L97.519 Non-pressure chronic ulcer of other part of right foot with unspecified severity; Z86.39 Personal history of other endocrine, nutritional and metabolic disease; Z87.09 Personal history of other diseases of the respiratory system; Z86.79 Personal history of other diseases of the circulatory system
CPT/HCPCS: 11042; A4218

== ENCOUNTER 2018-02-20 10:29 | Outpatient (CLI) | payer MEDICARE, OTHER ==
--- NOTE | 2018-02-20 12:38 | PRG ---
DATE OF SERVICE: 02/20/2018 HISTORY: Ms. Mouna Mitchell is a very pleasant 47-year-old who presents to the Wound Center for evaluation of multiple wounds of the right and left feet. The patient states that she continues to p erform dressing changes of Xeroform gauze for the wounds of her right and left feet. She states she has been trying to stay off her feet as much as possible. The patient denies any fever or chills. PHYSICAL EXAMINATION: VITAL SIGNS: Temperature 97.6, pulse 86, respirations 18, blood pressure 135/79. Accu-Chek 204. EXTREMITIES: Two wounds of the plantar surface of the right foot are present. The larger wound floyd ures approximately 4.3 x 1.5 cm. One ulceration of the plantar surface of the left foot is present w hich measures approximately 2.2 x 2.5 cm. Granulation tissue is present within the margins of each w ound. Nonviable tissue present within the margins of each wound was debrided with an excisional full -thickness debridement with the use of a curette. Callus desiccated tissue and undermining associate d with each wound were eliminated with the use of scissors. No purulent drainage is associated with any of the wounds. No erythema of the skin surrounding any of the wounds is present. No maceration of the skin of the periwound of any of the wounds is noted. No significant edema of the right or lef t foot is present on exam today. ASSESSMENT AND PLAN: 1. Wounds of right and left feet as described above. Dressing changes of Xeroform gauze, 4 x 4's, A BDs, Kerlix, and Coban will be initiated today. These dressing changes are to be performed on a leatha y basis after cleansing and irrigation. I will see Ms. Mitchell again in four weeks. 2. Diabetes mellitus. The patient's Accu-Chek in clinic today is 204. The patient has been reminde d that for optimal wound healing, her blood glucoses should remain below 150. 3. History of hypothyroidism. 4. History of obstructive sleep apnea. 5. History of hypertension.
== END 2018-02-20 10:30 | disposition home or self-care (01) ==
LOC: WCC 10:29
PROVIDERS: ATTEND Family Medicine
DX: E11.621 Type 2 diabetes mellitus with foot ulcer (principal); L97.529 Non-pressure chronic ulcer of other part of left foot with unspecified severity; L97.519 Non-pressure chronic ulcer of other part of right foot with unspecified severity; Z86.79 Personal history of other diseases of the circulatory system; Z87.09 Personal history of other diseases of the respiratory system; Z86.39 Personal history of other endocrine, nutritional and metabolic disease
CPT/HCPCS: 11042; A4218

== ENCOUNTER 2018-03-20 09:38 | Outpatient (CLI) | payer MEDICARE, MEDICAID ==
[2018-03-20] MEDS ORDERED: Lidocaine 2% Jelly 5 ML TUBE ONE (11:11)
[2018-03-20] MEDS ORDERED: Sodium Chloride 0.9% 15 ML NEB ONE (11:11)
--- NOTE | 2018-03-20 14:47 | PRG ---
DATE OF SERVICE: 03/20/2018 HISTORY: Ms. Mouna Mitchell is a very pleasant 47-year-old who presents to the [facility] for evaluation of multiple wounds of the right and left feet. The patient again states that she is performing dressing changes of Xeroform gauze for the wounds of her right and left feet. Again, she states that she has been trying to stay off her feet as much as possible. Ms. Mitchell complains pain associated with the wounds of her right and left feet. She denies any fever or chills. PHYSICAL EXAMINATION: VITAL SIGNS: Temperature 97.5, pulse 96, respirations 17, blood pressure 138/69. Accu-Chek 230. EXTREMITIES: Two wounds of the plantar surface of the right foot are present. The larger wound measures approximately 2.3 x 4.0 cm. One ulceration of the plantar surface of the left foot is present, which measures approximately 2.5 x 2.5 cm. Granulation tissue was present within the margins of each wound. Nonviable tissue present within the margins of each wound was debrided with an excisional full-thickness debridement with the use of a curette. Callus desiccated tissue and undermining associated with each wound were eliminated with use of scissors. No purulent drainage is associated with any of the wounds. No erythema of the skin surrounding any of the wounds is present. No maceration of the skin of the periwound of any of the wounds is noted. No significant edema of the right or left foot is present on exam today. ASSESSMENT AND PLAN: 1. Wounds of right and left feet as described above. Dressing changes of Xeroform gauze, 4x4s, ABDs, Kerlix, and Coban or Oz bandages will be continued on a daily basis after cleansing and irrigation. The patient has been given a prescription for Tylenol No.3, #30, one to two p.o. q4 to 6 hours p.r.n. pain. I will see Ms. Mitchell again in 4 weeks. 2. Diabetes mellitus. The patient's Accu-Chek in clinic today is 230. The patient has been reminded that for optimal wound healing, her blood glucoses should remain below 150. 3. History of hypothyroidism. 4. History of obstructive sleep apnea. 5. History of hypertension. Job ID: [id number]
== END 2018-03-20 09:39 | disposition home or self-care (01) ==
LOC: WCC 09:38
PROVIDERS: ATTEND Family Medicine
DX: E11.621 Type 2 diabetes mellitus with foot ulcer (principal); L97.429 Non-pressure chronic ulcer of left heel and midfoot with unspecified severity; L97.419 Non-pressure chronic ulcer of right heel and midfoot with unspecified severity; Z86.79 Personal history of other diseases of the circulatory system; Z86.39 Personal history of other endocrine, nutritional and metabolic disease; Z86.69 Personal history of other diseases of the nervous system and sense organs
CPT/HCPCS: A4218

== ENCOUNTER 2018-04-28 07:51 | Outpatient (CLI) | payer MEDICARE, MEDICAID ==
[2018-04-28] MEDS ORDERED: Lidocaine 2% PF 100 mg/5 ml Syringe ONE (11:11)
[2018-04-28] MEDS ORDERED: Sodium Chloride 0.9% 15 ML NEB ONE (11:11)
--- NOTE | 2018-04-28 12:31 | PRG ---
DATE OF SERVICE: 04/28/2018 SUBJECTIVE: Ms. Mouna Mitchell is a very pleasant 47-year-old, who presents to the [facility]ound Center for evaluation of wounds of the right and left feet. The patient has been performing dressing changes of Xeroform gauze for the wounds of her right and left feet since her last visit. Again, the patient states that she has been trying to stay off her feet as much as possible. The patient has no other complaints today. She denies any fever or chills. OBJECTIVE: VITAL SIGNS: Temperature 98.3, pulse 94, respirations 18, blood pressure 127/74. Accu-Chek 166. EXTREMITIES: A wound at the plantar surface of the right foot is present which measures approximately 5.0 x 1.5 cm. An ulceration of the plantar surface of the left foot is present, which measures approximately 2.4 x 3.0 cm. Granulation tissue is present within the margins of each wound. Nonviable tissue present within the margins of each wound was debrided with an excisional full-thickness debridement with the use of scissors. Callus and desiccated tissue at the periphery of each wound were eliminated with the use of scissors. No purulent drainage is associated with either wound. No erythema of the skin surrounding either wound is present. No maceration of the skin of the periwound of either wound is noted. No significant edema of the right or left foot is present on exam today. ASSESSMENT AND PLAN: 1. Wounds of right and left feet as described above. Dressing changes of Xeroform gauze, 4x4s, ABDs, Kerlix, and Coban or Oz bandages will be continued on a daily basis after cleansing and irrigation. The importance of offloading of the right and left feet has again been discussed with the patient. I will see Ms. Mitchell again in 4 weeks. 2. Diabetes mellitus. The patient's Accu-Chek in clinic today is 166. The patient has been reminded that for optimal wound healing, her blood glucoses should remain below 150. 3. History of hypothyroidism. 4. History of obstructive sleep apnea. 5. History of hypertension. Job ID: [id number]
== END 2018-04-28 07:52 | disposition home or self-care (01) ==
LOC: WCC 07:51
PROVIDERS: ATTEND Family Medicine
DX: E11.621 Type 2 diabetes mellitus with foot ulcer (principal); L97.529 Non-pressure chronic ulcer of other part of left foot with unspecified severity; L97.519 Non-pressure chronic ulcer of other part of right foot with unspecified severity; Z86.39 Personal history of other endocrine, nutritional and metabolic disease; Z87.09 Personal history of other diseases of the respiratory system; Z86.79 Personal history of other diseases of the circulatory system
CPT/HCPCS: 11042; A4218; J2001

== ENCOUNTER 2018-05-07 14:17 | Outpatient (CLI) | payer MEDICARE, MEDICAID ==
--- NOTE | 2018-05-07 15:01 | RAD ---
THREE VIEW LEFT SHOULDER: Indication: Left shoulder pain. FINDINGS: There is moderate osteoarthritis of the left AC joint. No fracture or dislocation is visualized. IMPRESSION: 1. Moderate osteoarthritis of the left AC joint. 2. No evidence of fracture or dislocation. POS: [facility]
--- NOTE | 2018-05-07 15:10 | RAD ---
RIGHT SHOULDER THREE VIEWS: Indication: Right shoulder pain. FINDINGS: There is mild osteoarthritis of the right AC joint. Heterotopic densities are seen adjacent to the gl enohumeral joint. There is no fracture or dislocation. There is focal heterotopic density adjacent th e lateral aspect of the acromion. IMPRESSION: Degenerative findings of the right shoulder, without acute fracture or dislocation. POS: [facility]
== END 2018-05-07 14:18 | disposition home or self-care (01) ==
LOC: BICRAD 14:17
PROVIDERS: ATTEND Internal Medicine
DX: M25.511 Pain in right shoulder (principal); M25.512 Pain in left shoulder; M19.011 Primary osteoarthritis, right shoulder; M19.012 Primary osteoarthritis, left shoulder

== ENCOUNTER 2018-05-26 10:32 | Outpatient (CLI) | payer MEDICARE, MEDICAID ==
--- NOTE | 2018-05-26 11:35 | PRG ---
DATE OF SERVICE: 05/26/2018 HISTORY: Ms. Mouna Mitchell is a very pleasant 47-year-old, who presents to the wound center for evaluation of wounds of the right and left feet. The patient has been performing dressing changes of Xeroform gauze for the wounds of her right and left feet since her last visit. Again, she states that she has been trying to stay off her feet as much as possible. Ms. Mitchell has no other complaints today. She denies any fever or chills. OBJECTIVE: VITAL SIGNS: Temperature 98.0, pulse 112, and blood pressure 143/81. EXTREMITIES: A wound of the plantar surface of the right foot is present which measures approximately 4.0 x 1.5 cm. The dimensions of the wound at the time of the patient's last visit were approximately 5.0 x 1.5 cm. An ulceration of the plantar surface of the left foot is present which measures approximately 3.0 x 2.2 cm. The dimensions of the wound at the time of the patient's last visit were approximately 3.0 x 2.4 cm. Granulation tissue is present within the margins of each wound. Nonviable tissue present within the margins of each wound was debrided with an excisional full-thickness debridement with the use of a curette. Callus and desiccated tissue at the periphery of each wound were eliminated with the use of scissors. No purulent drainage is associated with either wound. No erythema of the skin surrounding either wound is present. No maceration of the skin of the periwound of either wound is noted. No significant edema of the right or left foot is present on exam today. Necrotic bone is present at the periphery of the ulceration over the left foot. ASSESSMENT AND PLAN: 1. Wounds of right and left feet as described above. Dressing changes of Xeroform gauze, 4x4s, ABDs, Kerlix, and Coban or Oz bandages will be continued on a daily basis after cleansing and irrigation. The importance of offloading of the right and left feet has been reiterated to Ms. Mitchell. I have asked Ms. Mitchell to schedule an appointment with Dr. Cedeno in view of the necrotic bone present within the margins of the left foot wound. I will see Ms. Mitchell again after she has been seen by Surgery. 2. Diabetes mellitus. Accu-Cheks will be obtained at the time of the patient's clinic visits. The patient has been reminded that for optimal wound healing, her blood glucoses should remain below 150. 3. History of hypothyroidism. 4. History of obstructive sleep apnea. 5. History of hypertension. Job ID: [id number]
[2018-05-26] MEDS ORDERED: Sodium Chloride 0.9% 15 ML NEB ONE (15:00)
[2018-05-26] MEDS ORDERED: Lidocaine 2% PF 100 mg/5 ml Syringe ONE (15:00)
== END 2018-05-26 10:33 | disposition home or self-care (01) ==
LOC: WCC 10:32
PROVIDERS: ATTEND Family Medicine
DX: T81.89XD Other complications of procedures, not elsewhere classified, subsequent encounter (principal); E11.9 Type 2 diabetes mellitus without complications; Z86.69 Personal history of other diseases of the nervous system and sense organs; Z86.39 Personal history of other endocrine, nutritional and metabolic disease; Z86.79 Personal history of other diseases of the circulatory system
CPT/HCPCS: 11042; A4218; J2001

== ENCOUNTER 2018-07-07 11:18 | Outpatient (CLI) | payer MEDICARE, MEDICAID ==
--- NOTE | 2018-07-07 11:31 | PRG ---
DATE OF SERVICE: 07/07/2018 HISTORY: Ms. Mouna Mitchell is a very pleasant 47-year-old, who presents to the Wound Center for evaluation of wounds of the right and left feet. The patient has been performing dressing changes of Xeroform gauze for the wounds of her right and left feet since her last visit. The patient states she was seen by Dr. Cedeno recently. The patient has no complaints today. She denies any fever or chills. PHYSICAL EXAMINATION: VITAL SIGNS: Temperature 98.0, pulse 102, respirations 19, blood pressure 157/90. Accu-Chek 225. EXTREMITIES: A wound of the plantar surface of the right foot is present which measures approximately 4.0 x 1.8 cm. The dimensions of the wound at the time of the patient's last visit were approximately 4.0 x 1.5 cm. An ulceration of the plantar surface of the left foot is present which measures approximately 2.2 x 2.7 cm. The dimensions of the wound at the time of the patient's last visit were approximately 3.0 x 2.2 cm. Granulation tissue is present within the margins of each wound. Nonviable tissue present within the margins of each wound was debrided with an excisional full-thickness debridement with the use of scissors. Callus and desiccated tissue at the periphery of each wound were also eliminated with the use of scissors. No purulent drainage is associated with either wound. No erythema of the skin surrounding either wound is present. No maceration of the skin of the periwound of either wound is noted. No significant edema of the right or left foot is present on exam today. No necrotic bone is visible at the periphery of the ulceration over the left foot as at the time of the patient's last visit. ASSESSMENT AND PLAN: 1. Wounds of right and left feet as described above. Dressing changes of Xeroform gauze, 4x4s, ABDs, Kerlix, and Coban or Oz bandages will be continued on a daily basis after cleansing and irrigation. The patient states she has a followup appointment with Dr. Cedeno. I will see Ms. Mitchell again in 4 weeks. 2. Diabetes mellitus. The patient's Accu-Chek in clinic today is 225. The patient has been reminded that for optimal wound healing, her blood glucoses should remain below 150. 3. History of hypothyroidism. 4. History of obstructive sleep apnea. 5. History of hypertension. Job ID: [id number]
[2018-07-07] MEDS ORDERED: Sodium Chloride 0.9% 15 ML NEB ONE (18:00)
[2018-07-07] MEDS ORDERED: Lidocaine 2% 11 ML SYR ONE (18:00)
== END 2018-07-07 11:19 | disposition home or self-care (01) ==
LOC: WCC 11:18
PROVIDERS: ATTEND Family Medicine
DX: S91.301D Unspecified open wound, right foot, subsequent encounter (principal); S91.302D Unspecified open wound, left foot, subsequent encounter; I10 Essential (primary) hypertension; Z86.39 Personal history of other endocrine, nutritional and metabolic disease; Z87.09 Personal history of other diseases of the respiratory system
CPT/HCPCS: 11042; A4218

== ENCOUNTER 2018-09-04 09:35 | Outpatient (CLI) | payer MEDICARE, MEDICAID ==
--- NOTE | 2018-09-04 09:42 | PRG ---
DATE OF SERVICE: 09/04/2018 HISTORY: Ms. Mouna Mitchell is a very pleasant 47-year-old, who presents to the Wound Center for evaluation of wounds of the right and left feet. The patient states she was unable to present to clinic for her scheduled appointment 4 weeks ago because she did not feel well. Since her last visit, Ms. Mitchell has been performing dressing changes of Xeroform gauze for the wounds of her right and left feet. The patient also admits to making less than optimal choices. The patient has no other complaints today. She denies any fever or chills. PHYSICAL EXAMINATION: VITAL SIGNS: Temperature 98.3, pulse 113, respirations 20, and blood pressure 114/80. Accu-Chek 240. EXTREMITIES: A wound of the plantar surface of the right foot is present, which measures approximately 3.0 x 4.5 cm. The dimensions of the wound at the time of the patient's last visit were approximately 4.0 x 1.8 cm. An ulceration of the plantar surface of the left foot is present, which measures approximately 3.0 x 2.9 cm. The dimensions of the wound at the time of the patient's last visit were approximately 2.2 x 2.7 cm. Granulation tissue is present within the margins of each wound. Nonviable tissue present within the margins of each wound was debrided with an excisional full-thickness debridement with the use of scissors. Callus, desiccated tissue, and undermining at the periphery of each wound were also eliminated with the use of scissors. No purulent drainage is associated with either wound. No erythema of the skin surrounding either wound is present. No maceration of the skin of the periwound of either wound is noted. No significant edema of the right or left foot is present on exam today. ASSESSMENT AND PLAN: 1. Wounds of right and left feet as described above. Dressing changes of Xeroform gauze, 4x4s, ABDs, Kerlix, and Coban or Oz bandages will be continued on a daily basis after cleansing and irrigation. I will see Ms. Mitchell again in 4 weeks. The patient states she will consider placement in an LTAC, where offloading will be more optimal and consideration may be given to skin graft placement for the wounds of her right and left feet. 2. Diabetes mellitus. The patient's Accu-Chek in clinic today is 240. The patient has been reminded that for optimal wound healing, her blood glucoses should remain below 150. 3. History of hypothyroidism. 4. History of obstructive sleep apnea. 5. History of hypertension. Job ID: [id number]
[2018-09-04] MEDS ORDERED: Lidocaine 2% PF 100 mg/5 ml Syringe ONE (15:00)
[2018-09-04] MEDS ORDERED: Sodium Chloride 0.9% 15 ML NEB ONE (15:00)
== END 2018-09-04 09:36 | disposition home or self-care (01) ==
LOC: WCC 09:35
PROVIDERS: ATTEND Family Medicine
DX: S91.301D Unspecified open wound, right foot, subsequent encounter (principal); S91.302D Unspecified open wound, left foot, subsequent encounter; E11.69 Type 2 diabetes mellitus with other specified complication; E03.9 Hypothyroidism, unspecified; I10 Essential (primary) hypertension
CPT/HCPCS: 11042; A4218; J2001

== ENCOUNTER 2018-09-04 09:36 | Outpatient (CLI) | payer MEDICARE, OTHER ==
--- NOTE | 2018-09-04 09:58 | RAD ---
EXAM: Right hip 2 views: HISTORY: Right hip pain COMPARISON: None FINDINGS: Degenerative changes. No acute fracture or dislocation or other significant acute osseous abnormality. IMPRESSION: No significant acute process.
== END 2018-09-04 09:37 | disposition home or self-care (01) ==
LOC: BICRAD 09:36
PROVIDERS: ATTEND Internal Medicine
DX: M25.551 Pain in right hip (principal)

== ENCOUNTER 2018-10-02 10:59 | Outpatient (CLI) | payer MEDICARE, MEDICAID ==
[2018-10-02] MEDS ORDERED: Sodium Chloride 0.9% 15 ML NEB ONE (11:11)
--- NOTE | 2018-10-02 17:27 | PRG ---
DATE OF SERVICE: 10/02/2018 HISTORY: Ms. Mouna Mitchell is a very pleasant 47-year-old who presents to the Wound Center for evaluation of wounds of the right and left feet. Since the patient's last visit, Ms. Mitchell has been performing dressing changes of Xeroform gauze for the wounds of her right and left feet. The patient states that also since her last visit, she was seen by Dr. Cedeno. The patient has no complaints today. She denies any fever or chills. PHYSICAL EXAMINATION: VITAL SIGNS: Temperature 97.9, pulse 99, respirations 19, and blood pressure 138/92. Accu-Chek 300. EXTREMITIES: A wound of the plantar surface of the right foot is present, which measures approximately 3.5 x 5.0 cm. The dimensions of the wound at the time of the patient's last visit were approximately 3.0 x 4.5 cm. An ulceration of the plantar surface of the left foot is present, which measures approximately 4.5 x 2.5 cm. The dimensions of the wound at the time of the patient's last visit were approximately 3.0 x 2.9 cm. Granulation tissue is present within the margins of each wound. Nonviable tissue present within the margins of each wound was debrided with an excisional full-thickness debridement. Callus desiccated tissue and undermining at the periphery of each wound were eliminated with the use of scissors. No purulent drainage is associated with either wound. No erythema of the skin surrounding either wound is present. No maceration of the skin of the periwound of either wound is noted. No significant edema of the right or left foot is present on exam today. ASSESSMENT AND PLAN: 1. Wounds of right and left feet as described above. Dressing changes of Xeroform gauze, 4x4s, ABDs, Kerlix, and Coban will be continued on a daily basis after cleansing and irrigation. I will see Ms. Mitchell again in 4 weeks. 2. Diabetes mellitus. The patient's Accu-Chek in clinic today is 300. The patient has been reminded that for optimal wound healing, her blood glucoses should remain below 150. 3. History of hypothyroidism. 4. History of obstructive sleep apnea. 5. History of hypertension. Job ID: [id number]
== END 2018-10-02 11:00 | disposition home or self-care (01) ==
LOC: WCC 10:59
PROVIDERS: ATTEND Family Medicine
DX: E11.621 Type 2 diabetes mellitus with foot ulcer (principal); L97.429 Non-pressure chronic ulcer of left heel and midfoot with unspecified severity; L97.419 Non-pressure chronic ulcer of right heel and midfoot with unspecified severity; I10 Essential (primary) hypertension; Z86.69 Personal history of other diseases of the nervous system and sense organs
CPT/HCPCS: 11042; A4218

== ENCOUNTER 2018-10-30 10:57 | Outpatient (CLI) | payer MEDICARE, MEDICAID ==
--- NOTE | 2018-10-30 11:18 | PRG ---
DATE OF SERVICE: 10/30/2018 HISTORY: Ms. Mouna Mitchell is a very pleasant 47-year-old who presents to the Wound Center for evaluation of wounds of the right and left feet. Since the patient's last visit, Ms. Mitchell has been performing dressing changes of Xeroform gauze for the wounds of her right and left feet. The patient states she was seen by Dr. Cedeno in September of this year. She states that she will see Dr. Cedeno again in November. The patient has no complaints today. She denies any fever or chills. PHYSICAL EXAMINATION: VITAL SIGNS: Temperature 98.5, pulse 104, respirations 20, blood pressure 152/82. Accu-Chek 235. EXTREMITIES: A wound of the plantar surface of the right foot is present, which measures approximately 3.6 x 4.1 cm. The dimensions of the wound at the time of the patient's last visit were approximately 3.5 x 5.0 cm. An ulceration of the plantar surface of the left foot is present, which measures approximately 3.4 x 3.5 cm. The dimensions of the wound at the time of the patient's last visit were approximately 4.5 x 2.5 cm. Granulation tissue is present within the margins of each wound. Necrotic and nonviable tissue present within the margins of each wound was debrided with an excisional full-thickness debridement with the use of scissors. Callus desiccated tissue and undermining at the periphery of each wound were also eliminated with the use of scissors. No purulent drainage is associated with either wound. No erythema of the skin surrounding either wound is present. No maceration of the skin of the periwound of either wound is noted. No significant edema of the right or left foot is present on exam today. ASSESSMENT AND PLAN: 1. Wounds of right and left feet as described above. Dressing changes of Xeroform gauze, 4x4s, ABDs, Kerlix, and Coban will be continued on a daily basis after cleansing and irrigation. I will see Ms. Mitchell again in 4 weeks. 2. Diabetes mellitus. The patient's Accu-Chek in clinic today is 235. The patient has been reminded that for optimal wound healing, her blood glucoses should remain below 150. 3. History of hypothyroidism. 4. History of obstructive sleep apnea. 5. History of hypertension. Job ID: [id number]
[2018-10-30] MEDS ORDERED: Lidocaine 2% PF 100 mg/5 ml Syringe ONE (15:00)
[2018-10-30] MEDS ORDERED: Sodium Chloride 0.9% 15 ML NEB ONE (15:00)
== END 2018-10-30 10:58 | disposition home or self-care (01) ==
LOC: WCC 10:57
PROVIDERS: ATTEND Family Medicine
DX: S91.301D Unspecified open wound, right foot, subsequent encounter (principal); S91.302D Unspecified open wound, left foot, subsequent encounter; E11.9 Type 2 diabetes mellitus without complications; I10 Essential (primary) hypertension; E03.9 Hypothyroidism, unspecified
CPT/HCPCS: 11042; A4218; J2001

== ENCOUNTER 2018-12-04 07:56 | Outpatient (CLI) | payer MEDICARE, MEDICAID ==
--- NOTE | 2018-12-04 09:33 | PRG ---
DATE OF SERVICE: 12/04/2018 SUBJECTIVE HISTORY: Ms. Mouna Mitchell is a very pleasant 48-year-old, who presents to the Wound Center for evaluation of wounds of the right and left feet. Since the patient's last visit, Ms. Mitchell has been performing dressing changes of Xeroform gauze for the wounds of her right and left feet. The patient states she has stopped smoking. The patient has no complaints today. She denies any fever or chills. PHYSICAL EXAMINATION: VITAL SIGNS: Temperature 98.2, pulse 104, respirations 19, and blood pressure 162/69, Accu-Chek 230. EXTREMITIES: A wound of the plantar surface of the right foot is present, which measures approximately 3.3 x 4.5 cm. The dimensions of the wound at the time of the patient's last visit were approximately 3.6 x 4.1 cm. An ulceration of the plantar surface of the left foot is present, which measures approximately 3.3 x 3.5 cm. The dimensions of the wound at the time of the patient's last visit were approximately 3.4 x 3.5 cm. Granulation tissue is present within the margins of each wound. Necrotic and nonviable tissue present within the margins of each wound was debrided with an excisional full-thickness debridement with the use of scissors. Callus, desiccated tissue and undermining at the periphery of each wound were also eliminated with the use of scissors. No purulent drainage is associated with either wound. No erythema of the skin surrounding either wound is present. No maceration of the skin of the periwound of either wound is noted. No significant edema of the right or left foot is present on exam today. ASSESSMENT AND PLAN: 1. Wounds of right and left feet as described above. Dressing changes of Xeroform gauze, 4x4s, ABDs, Kerlix, and Oz bandages are to be performed on a daily basis after cleansing and irrigation. I will see Ms. Mitchell again in 4 weeks. 2. Diabetes mellitus. The patient's Accu-Chek in clinic today is 230. The patient has been reminded that for optimal wound healing, her blood glucoses should remain below 150. 3. History of hypothyroidism. 4. History of obstructive sleep apnea. 5. History of hypertension. Job ID: [id number]
[2018-12-04] MEDS ORDERED: Sodium Chloride 0.9% 15 ML NEB ONE (11:11)
[2018-12-04] MEDS ORDERED: Lidocaine 2% PF 100 mg/5 ml Syringe ONE (11:11)
== END 2018-12-04 07:57 | disposition home or self-care (01) ==
LOC: WCC 07:56
PROVIDERS: ATTEND Family Medicine
DX: E11.621 Type 2 diabetes mellitus with foot ulcer (principal); L97.429 Non-pressure chronic ulcer of left heel and midfoot with unspecified severity; L97.419 Non-pressure chronic ulcer of right heel and midfoot with unspecified severity; E03.9 Hypothyroidism, unspecified; I10 Essential (primary) hypertension
CPT/HCPCS: A4218; J2001

== ENCOUNTER 2019-01-01 09:07 | Outpatient (CLI) | payer MEDICARE, MEDICAID ==
[~2019-01-01 09:07] MED LIST changes: -Lidocaine 2% Jelly 5 ML TUBE ONE; +Lidocaine 2% PF 100 mg/5 ml Syringe ONE
--- NOTE | 2019-01-01 10:14 | PRG ---
DATE OF SERVICE: 01/01/2019 HISTORY: Ms. Mouna Mitchell is a very pleasant 48-year-old who presents to the Wound Center for evaluation of wounds of the right and left feet. Since the patient's last visit, Ms. Mitchell states she has been seen by Dr. Cedeno on 2 occasions. She states that she has been prescribed p.o. antibiotics by Dr. Cedeno, specifically Augmentin for a new ulceration over the left lateral foot. Also, since the patient's last visit, Ms. Mitchell has been performing dressing changes of Xeroform gauze for the wounds of her right and left feet. The patient has no complaints today. She denies any fever or chills. PHYSICAL EXAMINATION: VITAL SIGNS: Temperature 98.4, pulse 112, respirations 16, and blood pressure 127/65. Accu-Chek 302. EXTREMITIES: A wound of the plantar surface of the right foot is present, which measures approximately 3.5 x 5.0 cm. The dimensions of the wound at the time of the patient's last visit were approximately 3.3 x 4.5 cm. An ulceration of the plantar surface of the left foot is present, which measures approximately 3.0 x 4.2 cm. The dimensions of the wound at the time of the patient's last visit were approximately 3.3 x 3.5 cm. A new ulceration is present over the left lateral foot, which measures approximately 1.5 x 1.2 cm. Granulation tissue is present within the margins of each wound. Necrotic and nonviable tissue present within the margins of the right and left plantar wounds was debrided with an excisional full-thickness debridement with the use of scissors. Callus desiccated tissue and undermining at the periphery of both wounds were also eliminated with the use of scissors. No purulent drainage is associated with any of the wounds. No erythema of the skin surrounding any of the wounds is present. No maceration of the skin of the periwound of any of the wounds is noted. No significant edema of the right or left foot is present on exam today. ASSESSMENT AND PLAN: 1. Wounds of right and left feet as described above. Dressing changes of Xeroform gauze, ABDs, Kerlix, and Oz bandages or Coban are to be performed on a daily basis after cleansing and irrigation. 4x4s will be utilized as needed at the time of dressing changes. I will see Ms. Mitchell again in 4 weeks. Albumin and pre-albumin levels will be obtained today. 2. Diabetes mellitus. The patient's Accu-Chek in clinic today is 302. The patient has been reminded that for optimal wound healing, her blood glucoses should remain below 150. 3. History of hypothyroidism. 4. History of obstructive sleep apnea. 5. History of hypertension. Job ID: [id number]
== END 2019-01-01 09:08 | disposition home or self-care (01) ==
LOC: WCC 09:07
PROVIDERS: ATTEND Family Medicine
DX: E11.621 Type 2 diabetes mellitus with foot ulcer (principal); L97.529 Non-pressure chronic ulcer of other part of left foot with unspecified severity; L97.519 Non-pressure chronic ulcer of other part of right foot with unspecified severity; Z86.39 Personal history of other endocrine, nutritional and metabolic disease; Z87.09 Personal history of other diseases of the respiratory system; Z86.79 Personal history of other diseases of the circulatory system
CPT/HCPCS: 36415; 82040; 84134; A4218; J2001

== ENCOUNTER 2019-01-14 13:47 | Outpatient (CLI) | payer MEDICARE, MEDICAID ==
[~2019-01-14 13:47] MED LIST changes: -Lidocaine 2% PF 100 mg/5 ml Syringe ONE
--- NOTE | 2019-01-14 15:17 | PRG ---
DATE OF SERVICE: 01/14/2019 HISTORY: Ms. Mouna Mitchell is a very pleasant 48-year-old, who is regularly seen in the Wound Center for wounds of the plantar surface of the right and left feet. Today, the patient presents earlier than her next scheduled appointment for evaluation of a new wound of the left lateral foot. The patient reports pain of her left foot in addition to fever and chills. PHYSICAL EXAMINATION: VITAL SIGNS: Temperature 98.6, pulse 101, respirations 20, blood pressure 130/64. Accu-Chek 349. EXTREMITIES: A wound of the plantar surface of the right foot is present, which measures approximately 2.5 x 7.2 cm. A wound of the plantar surface of the left foot is present, which measures approximately 3.5 x 3.0 cm. Granulation tissue is present within the margins of each wound. No purulent drainage is associated with either wound. A new wound of the left lateral foot is present, which measures approximately 4.5 x 4.0 cm. A sample of the drainage from this wound was obtained with the use of a culturette and sent for aerobic and anaerobic cultures. A sample of granulation tissue from the ulceration of the plantar surface of the left foot was obtained with the use of scissors and also sent for aerobic and anaerobic cultures. The skin of the left foot is associated with a green discoloration. The left foot is also significantly edematous. ASSESSMENT AND PLAN: 1. Diabetic left foot infection. The patient has been taken to the emergency department. The patient has been told that admission to the hospital will be required for adequate treatment of her left foot infection. The patient understands and is in agreement with the preceding treatment plan. 2. Diabetes mellitus. The patient's Accu-Chek in clinic today is 349. 3. History of hypothyroidism. 4. History of obstructive sleep apnea. 5. History of hypertension. Job ID: [id number]
== END 2019-01-14 13:48 | disposition home or self-care (01) ==
LOC: WCC 13:47
PROVIDERS: ATTEND Family Medicine
DX: E11.621 Type 2 diabetes mellitus with foot ulcer (principal); L97.429 Non-pressure chronic ulcer of left heel and midfoot with unspecified severity; S91.301D Unspecified open wound, right foot, subsequent encounter; Z86.79 Personal history of other diseases of the circulatory system; Z87.09 Personal history of other diseases of the respiratory system; Z86.39 Personal history of other endocrine, nutritional and metabolic disease
CPT/HCPCS: 36416; 87070; 87205

== ENCOUNTER 2019-01-14 14:53 | Inpatient (IN) | payer MEDICARE, MEDICAID ==
[2019-01-14 16:03] LABS: #Eosinphils 0.4 thou/uL (0.0-0.7); #Lymphocytes 2.5 thou/uL (1.20-3.40); #Monocytes 0.9 thou/uL (0.11-0.59); %Basophils 0.3 % (0.0-1.0); %Eosinophils 2.6 % (0.0-10.0); %Lymphocytes 18.3 % (21.0-51.0); %Monocytes 6.6 % (0.0-10.0); %Neutrophils 72.1 % (42.0-75.0); Hemoglobin 9.4 g/dL (12.0-16.0); Mean Corpuscular HGB CONC 30.4 g/dL (32.0-36.0); Mean Corpuscular Hemoglobin 22.7 pg (27.0-31.0); Mean Corpuscular Volume 74.8 fL (78.0-98.0); Mean Platelet Volume 7.9 fL (7.4-10.4); Platelet Count 549 thou/uL (130-400); RBC Distribution Width 19.3 % (11.5-14.5); Red Blood Cell (RBC) Count 4.12 mill/uL (4.20-5.40); White Blood Cell (WBC) Count 13.9 thou/uL (4.8-10.8)
[2019-01-14 16:22] LABS: ALT (SGPT) 13 U/L (8-55); AST (SGOT) 11 U/L (5-34); Albumin 3.6 g/dL (3.5-5.0); Alkaline Phosphatase 94 U/L (40-110); Anion Gap 13 mmol/L (10-20); BUN (Urea Nitrogen) 13 mg/dL (7.0-18.7); Bilirubin, Total 0.2 mg/dL (0.2-1.2); Calc. Creatinine Clearance 0 mL/min (70-130); Calcium 9.7 mg/dL (7.8-10.44); Carbon Dioxide 29 mmol/L (22-29); Chloride 94 mmol/L (98-107); Estimated GFR-MDRD 75; Glucose 323 mg/dL (70-105); Protein, Total 8.6 g/dL (6.0-8.3); Sodium 132 mmol/L (136-145)
[2019-01-14 16:23] LABS: Anisocytosis SLIGHT = 6-15 cells (100X) (0-5/hpf); Hypochromia SLIGHT = 6-15 cells (100X) (0-5/hpf); MDiff Complete? YES; Microcytosis SLIGHT = 6-15 cells (100X) (0-5/hpf); Platelet Morphology Comment Appears Increased; Polychromasia SLIGHT = 2-3 cells (100X) (0-2/hpf)
--- NOTE | 2019-01-14 17:00 | RAD ---
Exam: Left foot 3 views: HISTORY: Left foot pain COMPARISON: 08/09/2015 FINDINGS: Extensive amputation changes are noted of all 5 toes at the level of the proximal metatarsals. There is some overlying bandage material. There is some soft tissue gas noted laterally and on the plantar aspect of the foot which certainly could represent infection unless the patient has had some type of procedure or injection to account for this. Moderate arthropathy involving the midfoot and hindfoot. Generalized soft tissue swelling of the dorsum of the foot and at the level of the amputati on. IMPRESSION: Soft tissue swelling at the level of the amputation as well as the dorsum of the foot. Abnormal splot tamara soft tissue gas laterally and on the plantar aspect of the foot at the level of the amputated fifth metatarsal certainly concerning for acute infection.
[2019-01-14] MEDS ORDERED: Clindamycin/D5W 600 mg/50 ml Premix Bag ONE ×2 (17:42→17:44)
[2019-01-14] MEDS ORDERED: Acetaminophen 500 MG TAB PO PRN (18:24)
[2019-01-14] MEDS ORDERED: traMADol HCl 50 MG TAB PO PRN (18:24)
[2019-01-14] MEDS ORDERED: Dextrose 5% in Water 1,000 ML IV PRN (18:30)
[2019-01-14] MEDS ORDERED: Dextrose 50% Abboject 50 ML SYRINGE SLOW IVP PRN (18:30)
[2019-01-14] MEDS ORDERED: Magnesium Citrate 300 ML BOT PO PRN (18:31)
--- NOTE | 2019-01-14 19:18 | ULT ---
Exam: Left lower extremity venous ultrasound with Doppler COMPARISON: 11/15/2015 HISTORY: Pain. TECHNIQUE: Grayscale, color flow, Doppler imaging with spectral waveform analysis performed of the l eft lower extremity venous system FINDINGS: There is compressibility, presence of flow and augmentation in the common femoral vein, femoral vein and popliteal vein. Flow the greater saphenous vein and profunda femoral vein. The posterior tibial vein is not appreciated. Posterior tibial vein was not appreciated on prior exam. Anechoic focus in the popliteal fossa compatible with a 1.7 x 1.5 x 1.7 cm Rios's cyst IMPRESSION: No evidence thrombus in the visualized left lower extremity venous system. Posterior tibial vein can not be demonstrated therefore cannot be assessed. Transcribed Date/Time: 01/14/2019 7:48 PM
[2019-01-14] MEDS ORDERED: Acetaminophen 650 MG Suppository PR PRN (19:40)
[2019-01-14] MEDS ORDERED: Ondansetron PF 4 MG/2 ML Vial IVP PRN (19:40)
[2019-01-14] MEDS ORDERED: Acetaminophen 325 MG TAB PO PRN (19:40)
[2019-01-14] MEDS ORDERED: Ondansetron ODT 4 MG TAB PO PRN (19:40)
[2019-01-14] MEDS ORDERED: Famotidine/PF 20 mg/2ml Vial SLOW IVP SCH (21:00)
[2019-01-14] MEDS: Polyethylene Glycol 3350 17 GM Packet PO SCH (21:36)
[2019-01-14 22:17] VITALS: BMI 37.3
[2019-01-14] MEDS: HumaLOG 300 UNITS/3 ML VIAL SC PRN (22:38)
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
--- NOTE | 2019-01-14 23:50 | HP ---
PRIMARY CARE PHYSICIAN: Dr. Cline. CHIEF COMPLAINT: Infection to the left foot. HISTORY OF PRESENT ILLNESS: Ms. Mitchell is a very pleasant 48-year-old woman with a known history of diabetes mellitus and previous foot amputations who had amputation of the left toes 2 to [address] Cedeno. The patient states for the last 2 weeks she has been dealing with an infection involving the site of previous amputation. She states she was seen by Dr. Cedeno in the outpatient setting and was started on oral antibiotics. The pain and swelling have continued to worsen and she is now experiencing pain in her calf with slight warmth. She was due to be seen by Dr. Cedeno again this week. However, given the fact that her symptoms have worsen, she opted to come into the emergency department. She has noticed increased draining. The patient denies having any fevers, but does report having chills occasionally, which she states is usual for her as she has the tendency to get cold easily. She was seen by wound care earlier today and that is when she was advised to come into the emergency department. She has undergone an x-ray which showed no evidence of osteomyelitis. She was noted to have soft tissue swelling at the level of the amputation as well as the dorsum of the foot with abnormal splotchy soft tissue gas laterally and on the plantar aspect of the foot at the level of the amputated 5th metatarsals concerning for acute infection. She does have an ulceration on the plantar base of the right foot for which she also sees Wound Care. Laboratory studies were done and notable for white count of 13.9. Her hemoglobin was 9.4, and she is chronically anemic. Sodium was 132, GFR 75, creatinine 0.97, BUN 13. Lactic acid normal at 1.2. All other blood draws unremarkable. She had a vascular ultrasound done due to complaints of pain in the calf and swelling. This did not show any evidence of left lower extremity DVT. The posterior tibial vein could not be demonstrated, therefore unassessed. She was noted to have a Rios cyst. ER physician did contact Dr. Cedeno, who evaluated the patient and advised IV antibiotics as no surgical intervention is recommended at this present time. PAST MEDICAL HISTORY: 1. Insulin-dependent diabetes mellitus. 2. Hyperthyroidism. 3. Obesity. 4. Bipolar. PAST SURGICAL HISTORY: 1. Status post amputation of toes on the right and left foot. 2. . SOCIAL HISTORY: The patient is a former smoker. She recently quit. Reports occasional alcohol consumption. Denies any drug use. ALLERGIES: 1. PEPE INHIBITORS. 2. SHELLFISH. 3. VANCOMYCIN. CURRENT MEDICATIONS: Levemir. PHYSICAL EXAMINATION: GENERAL: The patient appears well developed, well nourished, is in no acute distress. VITAL SIGNS: Temperature 98.5, pulse 98, respirations 16, O2 saturation 99% on room air, blood pressure 148/89. HEENT: Normocephalic and atraumatic. Pupils are equal, round, and reactive to light. Sclerae without icterus. Oropharynx is clear. NECK: Supple. LUNGS: Clear to auscultation bilaterally without any wheezes, rales, or rhonchi. CARDIAC: Regular rate and rhythm. ABDOMEN: Soft, nontender, nondistended. Normoactive bowel sounds present. No guarding or rigidity. No renal angle tenderness. EXTREMITIES: The patient deferred examination of left foot wound and states that has been examined thoroughly by ED physician. She would like to leave the bandage as is and wait for wound care to assess. She reports active draining. She does have some tenderness with palpation of the left calf. No pitting edema. Slight warmth to touch to right below the posterior knee along the calf. NEUROLOGIC: Alert and oriented x3. SKIN: Without rash or jaundice. INVESTIGATIONS: As mentioned above in HPI. IMPRESSION AND PLAN: Ms. Mitchell is a pleasant 48-year-old woman with diabetes mellitus, who has been referred for management of the following. 1. Left diabetic foot wound infection. The patient evaluated by Dr. Cedeno, who advised no surgical intervention at this time and has recommended continued antibiotics. The patient has been started on Levaquin and clindamycin. Wound Care has been consulted. Dr. Cedeno following. 2. Diabetes. Insulin sliding scale initiated. We will continue to monitor glucose. 3. Gastrointestinal prophylaxis with famotidine. 4. Deep venous thrombosis prophylaxis. The patient is ambulatory. No evidence of deep venous thrombosis prophylaxis. We will not initiate chemical prophylaxis in the event that surgery is eventually recommended. We will wait to confirm once consultation note is available as the patient states she is unsure if this is being delayed pending a few days of antibiotics or not needed at all. 5. Code status, full. The patient states she is unable to determine who her surrogate decision maker would be at this present time. The patient's case was discussed with attending, who agrees with the plan of care as described above. Job ID: [id number]
[2019-01-15 06:57] LABS: #Basophils 0.1 thou/uL (0.0-0.2); #Eosinphils 0.4 thou/uL (0.0-0.7); #Monocytes 0.9 thou/uL (0.11-0.59); %Basophils 0.7 % (0.0-1.0); %Eosinophils 3.5 % (0.0-10.0); %Lymphocytes 26.4 % (21.0-51.0); %Monocytes 7.7 % (0.0-10.0); %Neutrophils 61.7 % (42.0-75.0); Hemoglobin 9.1 g/dL (12.0-16.0); Mean Corpuscular HGB CONC 31.4 g/dL (32.0-36.0); Mean Corpuscular Hemoglobin 23.3 pg (27.0-31.0); Mean Corpuscular Volume 74.2 fL (78.0-98.0); Mean Platelet Volume 8.6 fL (7.4-10.4); Platelet Count 429 thou/uL (130-400); Red Blood Cell (RBC) Count 3.89 mill/uL (4.20-5.40); White Blood Cell (WBC) Count 11.3 thou/uL (4.8-10.8)
[2019-01-15] MEDS ORDERED: Sodium Chloride 0.9% 1,000 ML IV SCH (07:00)
[2019-01-15 07:13] LABS: Hemoglobin A1c 9.2 % (4.0-6.0)
[2019-01-15 07:28] LABS: Hypochromia SLIGHT = 6-15 cells (100X) (0-5/hpf); MDiff Complete? YES; Microcytosis SLIGHT = 6-15 cells (100X) (0-5/hpf); Platelet Morphology Comment Appears Increased; Polychromasia SLIGHT = 2-3 cells (100X) (0-2/hpf); Rouleaux Formation SLIGHT = 1-5 cells (100X) (None Seen)
[2019-01-15] MEDS ORDERED: Bisacodyl 10 MG SUPP PR PRN (07:44)
[2019-01-15] MEDS ORDERED: Diabetic Tussin 200 MG/10 ML UDCUP PO PRN (07:44)
[2019-01-15] MEDS ORDERED: hydrALAZINE 20 MG/ML VIAL SLOW IVP PRN (07:44)
[2019-01-15] MEDS ORDERED: Senokot S 8.6-50 MG TAB PO PRN (07:44)
[2019-01-15] MEDS ORDERED: Sodium Chloride 0.65% Nasal 44 ML BOT EA NARE PRN (07:44)
[2019-01-15] MEDS ORDERED: Loratadine 10 MG TAB PO PRN (07:44)
[2019-01-15] MEDS ORDERED: Non-Formulary Item 1 EACH (Insulin Detemir 100 Units/Ml [Levemir] 45 UNITS) SC SCH (09:00)
[2019-01-15 09:30] LABS: Chloride 98 mmol/L (98-107); Potassium 4.1 mmol/L (3.5-5.1); Sodium 135 mmol/L (136-145)
[2019-01-15 09:31] LABS: Calcium 9.5 mg/dL (7.8-10.44); Glucose 184 mg/dL (70-105)
[2019-01-15 09:33] LABS: Anion Gap 14 mmol/L (10-20); Carbon Dioxide 27 mmol/L (22-29)
[2019-01-15 09:35] LABS: BUN (Urea Nitrogen) 9 mg/dL (7.0-18.7); Calc. Creatinine Clearance 160 mL/min (70-130); Estimated GFR-MDRD 88
[2019-01-15] MEDS: Ferrous Sulfate 325 MG TAB PO SCH (09:54)
[2019-01-15] MEDS: Famotidine 20 MG TAB PO SCH ×2 (09:54→20:34)
[2019-01-15] MEDS: Multivit, Therapeutic 1 TAB PO SCH (09:54)
[2019-01-15] MEDS: Insulin Glargine 45 UNITS in Pre-Filled Syringe 1 EACH SC SCH (09:55)
[2019-01-15] MEDS: Polyethylene Glycol 3350 17 GM Packet PO SCH ×2 (09:56→20:35)
[2019-01-15] MEDS: traMADol HCl 50 MG TAB PO PRN ×2 (09:59→17:54)
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
--- NOTE | 2019-01-15 10:35 | PDOC.HOSPP ---
- Subjective Encounter Date: 01/15/19 Encounter Time: 08:50 Subjective: pt has very foul smell from her diabetic foot ulcer, on left side draining pus, she refused to see DR Cedeno for surgical debridement, she wanted to get second opinion, - Objective Vital Signs & Weight: Vital Signs (12 hours) Temp Pulse Resp BP BP Pulse Ox 01/15/19 07:36 98.3 F 78 16 139/81 98 01/15/19 04:02 98.0 F 83 16 112/72 93 L 01/14/19 23:40 98.8 F 101 H 20 136/82 100 Weight Weight 267 lb 3.2 oz I&O: 01/14/19 01/15/19 01/16/19 06:59 06:59 06:59 Intake Total 340 Balance 340 Result Diagrams: 01/15/19 06:30 01/15/19 08:23 Additional Labs: Accuchecks 01/15/19 01/14/19 04:01 21:58 POC Glucose 188 H 306 H Hospitalist ROS - Review of Systems Constitutional: denies: fever, chills, sweats, weakness, malaise, other ENT: denies: ear pain, ear discharge, nose pain, nose discharge, nose congestion , mouth pain, mouth swelling, throat pain, throat swelling, other Respiratory: denies: cough, dry, shortness of breath, hemoptysis, SOB with excertion, pleuritic pain, sputum, wheezing, other Cardiovascular: denies: chest pain, palpitations, orthopnea, paroxysmal noc. dyspnea, edema, light headedness, other Gastrointestinal: denies: nausea, vomiting, abdominal pain, diarrhea, constipation, melena, hematochezia, other Genitourinary: denies: dysuria, frequency, incontinence, hematuria, retention, other - Medication Medications: Active Medications Generic Name Dose Route Start Last Admin Trade Name Freq PRN Reason Stop Dose Admin Famotidine 20 mg 01/15/19 09:00 01/15/19 09:54 Pepcid PO 20 mg BID ROMAN Administration Ferrous Sulfate 325 mg 01/15/19 09:00 01/15/19 09:54 Feosol PO 325 mg DAILY ROMAN Administration Insulin Glargine 45 units/ 0.45 mls @ 0 mls/hr 01/15/19 09:00 01/15/19 09:55 Miscellaneous Medication SC 0.45 mls DAILY ROMAN Administration Insulin Human Lispro 0 units 01/14/19 19:44 01/14/19 22:38 Humalog SC 4 unit .BEDTIME SLIDING SC PRN Administration Bedtime Correctional Scale Multivitamins 1 tab 01/15/19 09:00 01/15/19 09:54 Theragran PO 1 tab DAILY ROMAN Administration Polyethylene Glycol 17 gm 01/14/19 21:00 01/15/19 09:56 Miralax PO Not Given BID ROMAN Tramadol HCl 50 mg 01/14/19 18:24 01/15/19 09:59 Ultram PO 50 mg Q6H PRN Administration Pain 1-5 - Exam General Appearance: NAD, awake alert Eye: PERRL, anicteric sclera ENT: normocephalic atraumatic, no oropharyngeal lesions Neck: supple, symmetric, no JVD, no thyromegaly Heart: RRR, no murmur, no gallops, no rubs Respiratory: CTAB, no wheezes, no rales, no ronchi Gastrointestinal: soft, non-tender, non-distended, normal bowel sounds, no palpable masses Extremities: no cyanosis, no clubbing Extremities - other findings: left foot all toe amputated, large ulcer on both feet, foul smell, see pict Skin: normal turgor, no lesions Neurological: no focal deficits Musculoskeletal: normal tone, normal strength Psychiatric: normal affect, normal behavior, A&O x 3 Hosp A/P (1) Diabetic foot ulcer Code(s): E11.621 - TYPE 2 DIABETES MELLITUS WITH FOOT ULCER; L97.509 - NON- PRESSURE CHRONIC ULCER OTH PRT UNSP FOOT W UNSP SEVERITY Status: Acute Qualifiers: Diabetic foot ulcer location: midfoot Diabetes mellitus type: type 2 Laterality: left Non-pressure ulcer stage: with necrosis of muscle Qualified Code(s): E11.621 - Type 2 diabetes mellitus with foot ulcer; L97.423 - Non-pressure chronic ulcer of left heel and midfoot with necrosis of muscle (2) Obesity (BMI 30-39.9) Code(s): E66.9 - OBESITY, UNSPECIFIED Status: Chronic (3) Fibroid uterus Code(s): D25.9 - LEIOMYOMA OF UTERUS, UNSPECIFIED Status: Chronic Qualifiers: Uterine leiomyoma location: unspecified location Qualified Code(s): D25.9 - Leiomyoma of uterus, unspecified (4) PVD (peripheral vascular disease) Code(s): I73.9 - PERIPHERAL VASCULAR DISEASE, UNSPECIFIED Status: Chronic (5) Bipolar disorder Code(s): F31.9 - BIPOLAR DISORDER, UNSPECIFIED Status: Chronic Qualifiers: (6) DM type 2 (diabetes mellitus, type 2) Status: Chronic (7) Hypertension Code(s): I10 - ESSENTIAL (PRIMARY) HYPERTENSION Status: Chronic Qualifiers: (8) Microcytic anemia Code(s): D50.9 - IRON DEFICIENCY ANEMIA, UNSPECIFIED Status: Chronic - Plan old records reviewed/req, continue antibiotics 01/15/19- pt refused to see surgeon and go for debridement, asking for second opinion, will consult ID, will add Zosyn, continue wound care, she will likley need amputation but pt is reluctant for now, control diabetes, home medication reconciled. will repeat labs tomorrow, medication reviewed as above, symptomatic treatment.
[2019-01-15] MEDS: Piperacillin/Tazobactam 3.375 GM in Sodium Chloride 0.9% 100 ML IVPB SCH ×2 (11:30→18:00)
[2019-01-15] MEDS: HumaLOG 300 UNITS/3 ML VIAL SC PRN ×2 (11:36→20:55)
[2019-01-15] MEDS: Linezolid 600 MG TAB PO SCH (20:34)
[2019-01-15] MEDS: Acetaminophen/Codeine 30-300mg Tablet PO PRN (20:44)
[2019-01-16] MEDS: Piperacillin/Tazobactam 3.375 GM in Sodium Chloride 0.9% 100 ML IVPB SCH ×4 (00:33→17:45)
--- NOTE | 2019-01-16 01:32 | CON ---
DATE OF CONSULTATION: REASON FOR CONSULTATION: Possible infection, left foot transmetatarsal amputation site. HISTORY OF PRESENT ILLNESS: A 48-year-old, known to me from previous visit in 2016. At that time, she presented with a history of type 2 diabetes, neuropathy, bipolar disorder, and recurring episodes of complications in right and left feet with osteomyelitis and prior amputations. She end up with pretty much of complete transmetatarsal on the left side and transmetatarsal on the right except for the fifth toe and has had chronic ulcers at the bottom of her feet and the last time I saw her, she appeared to have proper vascular supply and did not have evidence of deep infection in the feet. She did have surrounding callus and I have not seen her since she basically was doing wound care and had proper footwear, but now, she has developed inflammatory changes in the left lateral forefoot amputation site with chills, which has failed oral antimicrobial therapy in the outpatient setting. She was seen by Dr. Cedeno and finally was admitted. Currently, she appears in no distress. No headaches, visual symptoms, sore throat, odynophagia, dysphagia, no cough or sputum production, no chest pain, no abdominal pain or diarrhea, no back pain, no genitourinary symptoms. PAST MEDICAL HISTORY: Type 2 diabetes, hyperthyroidism, obesity, bipolar disorder, neuropathy with multiple complications in the feet with various amputations which culminated in transmetatarsal amputation on the left and almost complete transmetatarsal on the right except for the 5th toe, chronic ulcers at the bottom of the feet, plantar aspect until now with no deep infection. SOCIAL HISTORY: Former smoker. Drinks occasionally. No cocaine or methamphetamine use. ALLERGIES: PEPE INHIBITORS, SHELLFISH, AND VANCOMYCIN. CURRENT MEDICATION LIST: 1. Tylenol. 2. Dulcolax. 3. Dextrose. 4. Pepcid. 5. Feosol. 6. Glucagon. 7. Robitussin. 8. Apresoline. 9. Insulin. 10. Levofloxacin. 11. Zosyn. PHYSICAL EXAMINATION: VITAL SIGNS: T-max 98.3. Other vital signs are normal except for mild tachycardia. SKIN: Shows ulcerated areas with 100% granulation tissue at the base of the left and right forefeet. On the left side, the lateral dorsal aspect of the left forefoot has an area of softening of the soft tissues with obvious tunneling and fistulous tract with exudation of foul smelling purulent exudate. There is an obvious necrosis of the surface of the lateral aspect of the amputation site at the left forefoot. The pulses are palpable in dorsalis pedis. She has no lymphadenopathy. HEENT: Ocular movements are conjugate with some element of exophthalmos. Oral cavity with still quite a few teeth in place with moderate decay and gum disease, resorption. NECK: Supple. No jugular vein distention or carotid bruits. LUNGS: Symmetric. Clear breath sounds. HEART: S1, S2. Regular rate. No S3 or S4. ABDOMEN: Soft, not distended or tender. No ascites. No bladder distention. BACK: No back tenderness. EXTREMITIES: No other joint inflammatory process noted. She moves extremities equally. NEUROLOGIC: She is awake, oriented, pleasant. Follows commands. LABORATORY DATA: White cell count was 13.9 and now 11.3, hemoglobin is 9.1, MCV 74, platelets 429 with a normal differential. Sodium 135, creatinine 0.84. Liver profile normal. Albumin 3.6. Total protein 8.6, hemoglobin A1c 9.2, calcium 9.5. Cultures from the foot swab are pending. Gram stain showed polymicrobial nadine including gram-positive cocci in clusters. Previous cultures from November 2018 with group B strep, group G strep, and Morganella. Morganella was dahl-susceptible and then in 2017 she had MSSA anaerobes. ASSESSMENT: Type 2 diabetes, neuropathy, multiple right and left feet complications which culminated in amputations, almost transmetatarsal amputations on the right and transmetatarsal amputation on the left, now with necrotizing infection in the lateral aspect of the left lateral amputation site with foul odor, likely bone involvement. The patient will need surgical debridement, may be will end up with BK amputation. Surgical consultation has already been placed and we will continue with the current regimen. Probably, we will add vancomycin to the regimen because of the gram-positive cocci in clusters. After surgical exploration of the area, then she may end up with a BKA or not pending on findings. Job ID: [id number]
[2019-01-16] MEDS: traMADol HCl 50 MG TAB PO PRN ×4 (02:26→22:03)
[2019-01-16] MEDS: HumaLOG 300 UNITS/3 ML VIAL SC PRN ×2 (06:26→21:34)
[2019-01-16 06:57] LABS: Anion Gap 13 mmol/L (10-20); BUN (Urea Nitrogen) 11 mg/dL (7.0-18.7); CRP (Inflammatory) 11.62 mg/dL (= or < 0.5); Calc. Creatinine Clearance 153 mL/min (70-130); Calcium 9.2 mg/dL (7.8-10.44); Carbon Dioxide 28 mmol/L (22-29); Chloride 99 mmol/L (98-107); Estimated GFR-MDRD 84; Glucose 159 mg/dL (70-105); Sodium 136 mmol/L (136-145)
[2019-01-16 07:10] LABS: #Basophils 0.1 thou/uL (0.0-0.2); #Eosinphils 0.5 thou/uL (0.0-0.7); #Lymphocytes 2.7 thou/uL (1.20-3.40); #Neutrophils 7.6 thou/uL (1.40-6.50); %Basophils 0.4 % (0.0-1.0); %Eosinophils 4.3 % (0.0-10.0); %Lymphocytes 22.8 % (21.0-51.0); %Monocytes 8.2 % (0.0-10.0); %Neutrophils 64.3 % (42.0-75.0); Hemoglobin 8.2 g/dL (12.0-16.0); Mean Corpuscular Hemoglobin 22.2 pg (27.0-31.0); Mean Platelet Volume 7.4 fL (7.4-10.4); Platelet Count 503 thou/uL (130-400); RBC Distribution Width 19.1 % (11.5-14.5); White Blood Cell (WBC) Count 11.7 thou/uL (4.8-10.8)
[2019-01-16 08:37] LABS: Band 6 % (5-11); Eosinophils 3 % (0-10); Hypochromia SLIGHT = 6-15 cells (100X) (0-5/hpf); Lymphocytes 20 % (21-51); MDiff Complete? YES; Microcytosis SLIGHT = 6-15 cells (100X) (0-5/hpf); Monocytes 9 % (0-10); Neutrophil 62 % (42-75); Platelet Morphology Comment Appears Increased; Polychromasia SLIGHT = 2-3 cells (100X) (0-2/hpf)
[2019-01-16] MEDS: Multivit, Therapeutic 1 TAB PO SCH (08:43)
[2019-01-16] MEDS: Linezolid 600 MG TAB PO SCH ×2 (08:43→21:31)
[2019-01-16] MEDS: Famotidine 20 MG TAB PO SCH ×2 (08:44→21:31)
[2019-01-16] MEDS: Ferrous Sulfate 325 MG TAB PO SCH (08:44)
[2019-01-16] MEDS: Insulin Glargine 45 UNITS in Pre-Filled Syringe 1 EACH SC SCH (08:45)
[2019-01-16] MEDS: Polyethylene Glycol 3350 17 GM Packet PO SCH ×3 (08:49→21:31)
--- NOTE | 2019-01-16 10:18 | PDOC.HOSPP ---
- Subjective Encounter Date: 01/16/19 Encounter Time: 08:00 Subjective: Patient seen and examined. No new complaints. No overnight events - Objective Vital Signs & Weight: Vital Signs (12 hours) Temp Pulse Resp BP BP Pulse Ox 01/16/19 08:00 98 01/16/19 07:43 97.4 F L 92 20 118/76 98 01/16/19 04:00 98.1 F 89 18 106/69 99 01/16/19 00:00 98.5 F 60 15 125/67 99 Weight Admit Weight 267 lb 3.2 oz Weight 267 lb 3.2 oz I&O: 01/15/19 01/16/19 01/17/19 06:59 06:59 06:59 Intake Total 340 Balance 340 Result Diagrams: 01/16/19 06:00 01/16/19 06:00 Additional Labs: Accuchecks 01/16/19 01/15/19 01/15/19 04:37 20:02 15:36 POC Glucose 165 H 229 H 153 H 01/15/19 11:37 POC Glucose 267 H Hospitalist ROS - Review of Systems ENT: denies: ear pain, ear discharge, nose pain, nose discharge, nose congestion , mouth pain, mouth swelling, throat pain, throat swelling, other Respiratory: denies: cough, dry, shortness of breath, hemoptysis, SOB with excertion, pleuritic pain, sputum, wheezing, other Cardiovascular: denies: chest pain, palpitations, orthopnea, paroxysmal noc. dyspnea, edema, light headedness, other Gastrointestinal: denies: nausea, vomiting, abdominal pain, diarrhea, constipation, melena, hematochezia, other Genitourinary: denies: dysuria, frequency, incontinence, hematuria, retention, other Musculoskeletal: denies: neck pain, shoulder pain, arm pain, back pain, hand pain, leg pain, foot pain, other - Medication Medications: Active Medications Generic Name Dose Route Start Last Admin Trade Name Freq PRN Reason Stop Dose Admin Acetaminophen/Codeine Phosphate 1 tab 01/14/19 18:29 01/15/19 20:44 Tylenol #3 PO 1 tab Q4H PRN Administration Pain 6-10 Famotidine 20 mg 01/15/19 09:00 01/16/19 08:44 Pepcid PO 20 mg BID ROMAN Administration Ferrous Sulfate 325 mg 01/15/19 09:00 01/16/19 08:44 Feosol PO 325 mg DAILY ROMAN Administration Insulin Glargine 45 units/ 0.45 mls @ 0 mls/hr 01/15/19 09:00 01/16/19 08:45 Miscellaneous Medication SC 0.45 mls DAILY ROMAN Administration Piperacillin Sod/Tazobactam 100 mls @ 200 mls/hr 01/15/19 12:00 01/16/19 06: 20 Sod 3.375 gm/ Sodium Chloride IVPB 100 mls Q6HR ROMAN Administration Insulin Human Lispro 0 units 01/14/19 18:30 01/16/19 06:26 Humalog SC 2 unit .MODERATE SLIDING SC PRN Administration Moderate Correctional Scale Insulin Human Lispro 0 units 01/14/19 19:44 01/15/19 20:55 Humalog SC 2 unit .BEDTIME SLIDING SC PRN Administration Bedtime Correctional Scale Linezolid 600 mg 01/15/19 21:00 01/16/19 08:43 Zyvox PO 600 mg Q12HR ROMAN Administration Multivitamins 1 tab 01/15/19 09:00 01/16/19 08:43 Theragran PO 1 tab DAILY ROMAN Administration Polyethylene Glycol 17 gm 01/14/19 21:00 01/16/19 08:49 Miralax PO Not Given BID ROMAN Tramadol HCl 50 mg 01/14/19 18:24 01/16/19 08:55 Ultram PO 50 mg Q6H PRN Administration Pain 1-5 - Exam General Appearance: NAD, awake alert Eye: PERRL, anicteric sclera ENT: normocephalic atraumatic, no oropharyngeal lesions Neck: supple, symmetric, no JVD, no thyromegaly Heart: RRR, no murmur, no gallops, no rubs Respiratory: CTAB, no wheezes, no rales, no ronchi Gastrointestinal: soft, non-tender, non-distended, normal bowel sounds, no palpable masses, no hepatomegaly, no guarding, no rigidity Extremities - other findings: bilateral foot ulcer, with dressing Skin: normal turgor, no lesions Neurological: cranial nerve grossly intact, normal sensation to touch, no focal deficits Musculoskeletal: normal tone, normal strength Psychiatric: normal affect, normal behavior Hosp A/P (1) Diabetic foot ulcer Code(s): E11.621 - TYPE 2 DIABETES MELLITUS WITH FOOT ULCER; L97.509 - NON- PRESSURE CHRONIC ULCER OTH PRT UNSP FOOT W UNSP SEVERITY Status: Acute Qualifiers: Diabetic foot ulcer location: midfoot Diabetes mellitus type: type 2 Laterality: left Non-pressure ulcer stage: with necrosis of muscle Qualified Code(s): E11.621 - Type 2 diabetes mellitus with foot ulcer; L97.423 - Non-pressure chronic ulcer of left heel and midfoot with necrosis of muscle (2) Obesity (BMI 30-39.9) Code(s): E66.9 - OBESITY, UNSPECIFIED Status: Chronic (3) Fibroid uterus Code(s): D25.9 - LEIOMYOMA OF UTERUS, UNSPECIFIED Status: Chronic Qualifiers: Uterine leiomyoma location: unspecified location Qualified Code(s): D25.9 - Leiomyoma of uterus, unspecified (4) PVD (peripheral vascular disease) Code(s): I73.9 - PERIPHERAL VASCULAR DISEASE, UNSPECIFIED Status: Chronic (5) Bipolar disorder Code(s): F31.9 - BIPOLAR DISORDER, UNSPECIFIED Status: Chronic Qualifiers: (6) DM type 2 (diabetes mellitus, type 2) Status: Chronic (7) Hypertension Code(s): I10 - ESSENTIAL (PRIMARY) HYPERTENSION Status: Chronic Qualifiers: (8) Microcytic anemia Code(s): D50.9 - IRON DEFICIENCY ANEMIA, UNSPECIFIED Status: Chronic - Plan old records reviewed/req, continue antibiotics 01/15/19- pt refused to see surgeon and go for debridement, asking for second opinion, will consult ID, will add Zosyn, continue wound care, she will likley need amputation but pt is reluctant for now, control diabetes, home medication reconciled. will repeat labs tomorrow, medication reviewed as above, symptomatic treatment. 01/16/19- currently on levaquin, zosyn and zyvox, will consult dr piper for surgical debridement, continue wound care
[2019-01-17] MEDS: Piperacillin/Tazobactam 3.375 GM in Sodium Chloride 0.9% 100 ML IVPB SCH ×4 (00:06→17:38)
[2019-01-17] MEDS: Acetaminophen/Codeine 30-300mg Tablet PO PRN ×2 (02:07→08:47)
[2019-01-17] MEDS: traMADol HCl 50 MG TAB PO PRN ×2 (05:53→22:10)
[2019-01-17] MEDS: Ferrous Sulfate 325 MG TAB PO SCH (08:36)
[2019-01-17] MEDS: Famotidine 20 MG TAB PO SCH ×2 (08:36→21:59)
[2019-01-17] MEDS: Linezolid 600 MG TAB PO SCH ×2 (08:36→22:05)
[2019-01-17] MEDS: Polyethylene Glycol 3350 17 GM Packet PO SCH ×2 (08:37→21:59)
[2019-01-17] MEDS: Multivit, Therapeutic 1 TAB PO SCH (08:37)
[2019-01-17] MEDS: Insulin Glargine 45 UNITS in Pre-Filled Syringe 1 EACH SC SCH (08:37)
--- NOTE | 2019-01-17 10:04 | PDOC.GSPN ---
Surgery Progress Note: Subj - Subjective Narrative: Patient seen previously by Dr. Cedeno but she has decided to seek care from another surgeon so I saw her yesterday afternoon. I reviewed her history as documented in Dr. Cedeno's note. The patient confirmed that this is accurate. She was on the OR schedule yesterday for debridement but refused this. Unfortunately she ate lunch right before I saw her but she was agreeable to a bedside debridement. She had foul-smelling necrotic full-thickness skin loss and subcutaneous tissue. There was no definite bone palpable within the wound but she did not allow me to completely debride it. The lateral foot wound does not communicate with the plantar foot wound but there is only a small amount of questionably viable tissue the 2 areas. Cultures were sent and the wound was irrigated and packed by her nurse. She has good dorsalis pedis pulses bilaterally. The chronic plantar wound on the right is clean and granulating. The plantar wound on the left is also clean, but there is a dusky area where it is in close proximity to the necrotic lateral foot wound. I recommended irrigating VAC placement but the patient refused this, saying that she does not do well with VAC dressings. I will see her again on Saturday, and the patient is currently agreeable to going to the operating room on Saturday if the wound does not look better. If she requires additional operative treatment before Saturday, please consult podiatry. Surgery Progress Note: Obj - Vital signs Vital signs: Vital Signs - Most Recent Temp Pulse Resp BP Pulse Ox 97.9 F 82 16 106/65 98 01/17/19 07:30 01/17/19 07:30 01/17/19 07:30 01/17/19 07:30 01/17/19 08:00 Surgery Progress Note: Results - Labs Result Diagrams: 01/16/19 06:00 01/16/19 06:00
--- NOTE | 2019-01-17 10:06 | PDOC.OP ---
Operative Note - Operative Note Operative Note: The patient gave verbal consent for bedside debridements of her necrotic infected left lateral foot wound. The patient's left lateral foot was prepped with Betadine. The nonadherent skin overlying the wound was sharply excised. The underlying full-thickness necrotic skin was then sharply excised, exposing purulent necrotic foul-smelling subcutaneous tissues. Cultures were sent. As much of the underlying necrotic subcutaneous tissue as possible was sharply excised, but the patient did not tolerate full debridement. There was no definite bone palpable within the wound. The wound did not communicate with the chronic plantar wound, but there was only a small amount of dusky appearing questionably viable tissue the 2 wounds. The wound was irrigated and packed.
--- NOTE | 2019-01-17 10:51 | PDOC.HOSPP ---
- Subjective Encounter Date: 01/17/19 Encounter Time: 10:00 Subjective: Patient seen and examined. No new complaints. No overnight events - Objective Vital Signs & Weight: Vital Signs (12 hours) Temp Pulse Resp BP Pulse Ox 01/17/19 08:00 98 01/17/19 07:30 97.9 F 82 16 106/65 98 Weight Admit Weight 267 lb 3.2 oz Weight 267 lb 3.2 oz I&O: 01/16/19 01/17/19 01/18/19 06:59 06:59 06:59 Intake Total 340 900 Balance 340 900 Result Diagrams: 01/16/19 06:00 01/16/19 06:00 Additional Labs: Accuchecks 01/16/19 01/16/19 01/16/19 19:48 16:51 11:02 POC Glucose 216 H 127 H 161 H Hospitalist ROS - Review of Systems ENT: denies: ear pain, ear discharge, nose pain, nose discharge, nose congestion , mouth pain, mouth swelling, throat pain, throat swelling, other Respiratory: denies: cough, dry, shortness of breath, hemoptysis, SOB with excertion, pleuritic pain, sputum, wheezing, other Cardiovascular: denies: chest pain, palpitations, orthopnea, paroxysmal noc. dyspnea, edema, light headedness, other Gastrointestinal: denies: nausea, vomiting, abdominal pain, diarrhea, constipation, melena, hematochezia, other Genitourinary: denies: dysuria, frequency, incontinence, hematuria, retention, other Musculoskeletal: denies: neck pain, shoulder pain, arm pain, back pain, hand pain, leg pain, foot pain, other Skin: denies: rash, lesions, moncho, bruising, other - Medication Medications: Active Medications Generic Name Dose Route Start Last Admin Trade Name Freq PRN Reason Stop Dose Admin Acetaminophen/Codeine Phosphate 1 tab 01/14/19 18:29 01/17/19 08:47 Tylenol #3 PO 1 tab Q4H PRN Administration Pain 6-10 Famotidine 20 mg 01/15/19 09:00 01/17/19 08:36 Pepcid PO 20 mg BID ROMAN Administration Ferrous Sulfate 325 mg 01/15/19 09:00 01/17/19 08:36 Feosol PO 325 mg DAILY ROMAN Administration Insulin Glargine 45 units/ 0.45 mls @ 0 mls/hr 01/15/19 09:00 01/17/19 08:37 Miscellaneous Medication SC 0.45 mls DAILY ROMAN Administration Piperacillin Sod/Tazobactam 100 mls @ 200 mls/hr 01/15/19 12:00 01/17/19 06: 12 Sod 3.375 gm/ Sodium Chloride IVPB 100 mls Q6HR ROMAN Administration Insulin Human Lispro 0 units 01/14/19 18:30 01/16/19 06:26 Humalog SC 2 unit .MODERATE SLIDING SC PRN Administration Moderate Correctional Scale Insulin Human Lispro 0 units 01/14/19 19:44 01/16/19 21:34 Humalog SC 2 unit .BEDTIME SLIDING SC PRN Administration Bedtime Correctional Scale Linezolid 600 mg 01/15/19 21:00 01/17/19 08:36 Zyvox PO 600 mg Q12HR ROMAN Administration Multivitamins 1 tab 01/15/19 09:00 01/17/19 08:37 Theragran PO 1 tab DAILY ROMAN Administration Polyethylene Glycol 17 gm 01/14/19 21:00 01/17/19 08:37 Miralax PO 17 gm BID ROMAN Administration Tramadol HCl 50 mg 01/14/19 18:24 01/17/19 05:53 Ultram PO 50 mg Q6H PRN Administration Pain 1-5 - Exam General Appearance: NAD, awake alert Eye: PERRL, anicteric sclera ENT: normocephalic atraumatic, no oropharyngeal lesions Neck: supple, symmetric, no JVD, no thyromegaly Heart: RRR, no murmur, no gallops, no rubs Respiratory: CTAB, no wheezes, no rales, no ronchi Gastrointestinal: soft, non-tender, non-distended, normal bowel sounds Extremities: no cyanosis, no clubbing Extremities - other findings: both feet with dressing Skin: normal turgor, no lesions, no rashes Neurological: cranial nerve grossly intact, no focal deficits Musculoskeletal: normal tone, normal strength Psychiatric: normal affect, normal behavior Hosp A/P (1) Diabetic foot ulcer Code(s): E11.621 - TYPE 2 DIABETES MELLITUS WITH FOOT ULCER; L97.509 - NON- PRESSURE CHRONIC ULCER OTH PRT UNSP FOOT W UNSP SEVERITY Status: Acute Qualifiers: Diabetic foot ulcer location: midfoot Diabetes mellitus type: type 2 Laterality: left Non-pressure ulcer stage: with necrosis of muscle Qualified Code(s): E11.621 - Type 2 diabetes mellitus with foot ulcer; L97.423 - Non-pressure chronic ulcer of left heel and midfoot with necrosis of muscle (2) Obesity (BMI 30-39.9) Code(s): E66.9 - OBESITY, UNSPECIFIED Status: Chronic (3) Fibroid uterus Code(s): D25.9 - LEIOMYOMA OF UTERUS, UNSPECIFIED Status: Chronic Qualifiers: Uterine leiomyoma location: unspecified location Qualified Code(s): D25.9 - Leiomyoma of uterus, unspecified (4) PVD (peripheral vascular disease) Code(s): I73.9 - PERIPHERAL VASCULAR DISEASE, UNSPECIFIED Status: Chronic (5) Bipolar disorder Code(s): F31.9 - BIPOLAR DISORDER, UNSPECIFIED Status: Chronic Qualifiers: (6) DM type 2 (diabetes mellitus, type 2) Status: Chronic (7) Hypertension Code(s): I10 - ESSENTIAL (PRIMARY) HYPERTENSION Status: Chronic Qualifiers: (8) Microcytic anemia Code(s): D50.9 - IRON DEFICIENCY ANEMIA, UNSPECIFIED Status: Chronic - Plan old records reviewed/req, continue antibiotics 01/15/19- pt refused to see surgeon and go for debridement, asking for second opinion, will consult ID, will add Zosyn, continue wound care, she will likley need amputation but pt is reluctant for now, control diabetes, home medication reconciled. will repeat labs tomorrow, medication reviewed as above, symptomatic treatment. 01/16/19- currently on levaquin, zosyn and zyvox, will consult dr piper for surgical debridement, continue wound care 01/17/19- s/p I & D yesterday, follow on culture result, continue zosyn, zyvox, , wound care
[2019-01-17] MEDS: HumaLOG 300 UNITS/3 ML VIAL SC PRN ×2 (17:37→21:59)
[2019-01-18] MEDS: Piperacillin/Tazobactam 3.375 GM in Sodium Chloride 0.9% 100 ML IVPB SCH ×3 (00:35→11:35)
[2019-01-18] MEDS: Famotidine 20 MG TAB PO SCH ×2 (07:59→19:54)
[2019-01-18] MEDS: Polyethylene Glycol 3350 17 GM Packet PO SCH ×2 (07:59→19:55)
[2019-01-18] MEDS: Multivit, Therapeutic 1 TAB PO SCH (07:59)
[2019-01-18] MEDS: Linezolid 600 MG TAB PO SCH (07:59)
[2019-01-18] MEDS: Ferrous Sulfate 325 MG TAB PO SCH (07:59)
[2019-01-18] MEDS: Insulin Glargine 45 UNITS in Pre-Filled Syringe 1 EACH SC SCH (08:00)
[2019-01-18] MEDS: traMADol HCl 50 MG TAB PO PRN ×2 (08:01→19:54)
--- NOTE | 2019-01-18 10:19 | PDOC.HOSPP ---
- Subjective Encounter Date: 01/18/19 Encounter Time: 09:15 Subjective: Patient seen and examined. No new complaints. No overnight events - Objective Vital Signs & Weight: Vital Signs (12 hours) Temp Pulse Resp BP Pulse Ox 01/18/19 08:07 99 01/18/19 08:05 98.2 F 82 18 116/78 99 01/18/19 00:42 90 18 95 Weight Admit Weight 267 lb 3.2 oz Weight 267 lb 3.2 oz I&O: 01/17/19 01/18/19 01/19/19 06:59 06:59 06:59 Intake Total 900 1620 Balance 900 1620 Result Diagrams: 01/16/19 06:00 01/16/19 06:00 Additional Labs: Accuchecks 01/18/19 01/17/19 01/17/19 04:33 20:12 11:42 POC Glucose 195 H 218 H 133 H 01/17/19 04:40 POC Glucose 126 H Hospitalist ROS - Review of Systems ENT: denies: ear pain, ear discharge, nose pain, nose discharge, nose congestion , mouth pain, mouth swelling, throat pain, throat swelling, other Respiratory: denies: cough, dry, shortness of breath, hemoptysis, SOB with excertion, pleuritic pain, sputum, wheezing, other Cardiovascular: denies: chest pain, palpitations, orthopnea, paroxysmal noc. dyspnea, edema, light headedness, other Gastrointestinal: denies: nausea, vomiting, abdominal pain, diarrhea, constipation, melena, hematochezia, other Genitourinary: denies: dysuria, frequency, incontinence, hematuria, retention, other Musculoskeletal: denies: neck pain, shoulder pain, arm pain, back pain, hand pain, leg pain, foot pain, other - Medication Medications: Active Medications Generic Name Dose Route Start Last Admin Trade Name Freq PRN Reason Stop Dose Admin Acetaminophen/Codeine Phosphate 1 tab 01/14/19 18:29 01/17/19 08:47 Tylenol #3 PO 1 tab Q4H PRN Administration Pain 6-10 Famotidine 20 mg 01/15/19 09:00 01/18/19 07:59 Pepcid PO 20 mg BID ROMAN Administration Ferrous Sulfate 325 mg 01/15/19 09:00 01/18/19 07:59 Feosol PO 325 mg DAILY ROMAN Administration Insulin Glargine 45 units/ 0.45 mls @ 0 mls/hr 01/15/19 09:00 01/18/19 08:00 Miscellaneous Medication SC 0.45 mls DAILY ROMAN Administration Piperacillin Sod/Tazobactam 100 mls @ 200 mls/hr 01/15/19 12:00 01/18/19 06: 03 Sod 3.375 gm/ Sodium Chloride IVPB 100 mls Q6HR ROMAN Administration Insulin Human Lispro 0 units 01/14/19 18:30 01/17/19 17:37 Humalog SC 2 unit .MODERATE SLIDING SC PRN Administration Moderate Correctional Scale Insulin Human Lispro 0 units 01/14/19 19:44 01/17/19 21:59 Humalog SC 2 unit .BEDTIME SLIDING SC PRN Administration Bedtime Correctional Scale Linezolid 600 mg 01/15/19 21:00 01/18/19 07:59 Zyvox PO 600 mg Q12HR ROMAN Administration Multivitamins 1 tab 01/15/19 09:00 01/18/19 07:59 Theragran PO 1 tab DAILY ROMAN Administration Polyethylene Glycol 17 gm 01/14/19 21:00 01/18/19 07:59 Miralax PO Not Given BID ROMAN Tramadol HCl 50 mg 01/14/19 18:24 01/18/19 08:01 Ultram PO 50 mg Q6H PRN Administration Pain 1-5 - Exam General Appearance: NAD, awake alert Eye: PERRL, anicteric sclera ENT: normocephalic atraumatic, no oropharyngeal lesions Neck: supple, symmetric, no JVD, no thyromegaly Heart: RRR, no murmur, no gallops, no rubs, normal peripheral pulses Respiratory: CTAB, no wheezes, no rales, no ronchi, normal chest expansion Gastrointestinal: soft, non-tender, non-distended, normal bowel sounds, no palpable masses, no hepatomegaly, no guarding Extremities: no cyanosis, no clubbing Extremities - other findings: both feet with dressing Skin: normal turgor, no lesions Neurological: cranial nerve grossly intact, no focal deficits Musculoskeletal: normal tone, normal strength Psychiatric: normal affect, normal behavior, A&O x 3 Hosp A/P (1) Diabetic foot ulcer Code(s): E11.621 - TYPE 2 DIABETES MELLITUS WITH FOOT ULCER; L97.509 - NON- PRESSURE CHRONIC ULCER OTH PRT UNSP FOOT W UNSP SEVERITY Status: Acute Qualifiers: Diabetic foot ulcer location: midfoot Diabetes mellitus type: type 2 Laterality: left Non-pressure ulcer stage: with necrosis of muscle Qualified Code(s): E11.621 - Type 2 diabetes mellitus with foot ulcer; L97.423 - Non-pressure chronic ulcer of left heel and midfoot with necrosis of muscle (2) Obesity (BMI 30-39.9) Code(s): E66.9 - OBESITY, UNSPECIFIED Status: Chronic (3) Fibroid uterus Code(s): D25.9 - LEIOMYOMA OF UTERUS, UNSPECIFIED Status: Chronic Qualifiers: Uterine leiomyoma location: unspecified location Qualified Code(s): D25.9 - Leiomyoma of uterus, unspecified (4) PVD (peripheral vascular disease) Code(s): I73.9 - PERIPHERAL VASCULAR DISEASE, UNSPECIFIED Status: Chronic (5) Bipolar disorder Code(s): F31.9 - BIPOLAR DISORDER, UNSPECIFIED Status: Chronic Qualifiers: (6) DM type 2 (diabetes mellitus, type 2) Status: Chronic (7) Hypertension Code(s): I10 - ESSENTIAL (PRIMARY) HYPERTENSION Status: Chronic Qualifiers: (8) Microcytic anemia Code(s): D50.9 - IRON DEFICIENCY ANEMIA, UNSPECIFIED Status: Chronic - Plan old records reviewed/req, continue antibiotics 01/15/19- pt refused to see surgeon and go for debridement, asking for second opinion, will consult ID, will add Zosyn, continue wound care, she will likley need amputation but pt is reluctant for now, control diabetes, home medication reconciled. will repeat labs tomorrow, medication reviewed as above, symptomatic treatment. 01/16/19- currently on levaquin, zosyn and zyvox, will consult dr piper for surgical debridement, continue wound care 01/17/19- s/p I & D yesterday, follow on culture result, continue zosyn, zyvox, , wound care 01/18/19- continue zosyn and zyvox, tomorrow surgeon will re evaluate her wound and decide if she needs more debridement, continue wound care, will repeat labs tomorrow, medication reviewed as above, symptomatic treatment
[2019-01-18] MEDS: Cepastat Lozenges 1 LOZ PO PRN ×2 (11:34→17:30)
[2019-01-18] MEDS: HumaLOG 300 UNITS/3 ML VIAL SC PRN ×2 (11:57→17:29)
--- NOTE | 2019-01-18 17:13 | EKG ---
Test Reason : STAT Blood Pressure : / mmHG Vent. Rate : 096 BPM Atrial Rate : 096 BPM P-R Int : 164 ms QRS Dur : 102 ms QT Int : 380 ms P-R-T Axes : 059 012 047 degrees QTc Int : 480 ms Normal sinus rhythm Prolonged QT Abnormal ECG When compared with ECG of 03-MAR-2016 12:50, No significant change was found Confirmed by ISREAL PORTILLO (2) on 01/18/2019 5:12:38 PM Referred By: DARELL Confirmed By:ISREAL PORTILLO
--- NOTE | 2019-01-18 17:14 | PRG ---
DATE OF SERVICE: 01/18/2019 SUBJECTIVE: The patient of Dr. Clement, did some bedside debridement. The patient is feeling okay. She had no headaches, visual symptoms, sore throat, odynophagia, or dysphagia. No diarrhea, maybe a little bit of loose stool from the laxative. OBJECTIVE: VITAL SIGNS: Normal. She has been afebrile. GENERAL: Awake, alert, and oriented, no distress. LUNGS: Clear. HEART: S1 and S2 regular rate, ABDOMEN: Soft, not distended. No bladder distention. MUSCULOSKELETAL: No joint inflammatory activity. The wound dressing was not removed today. LABORATORY DATA: GFR at 84. CRP 11.62. White cell count 11.7, hemoglobin 8.2, and platelets 503. Microbiology with group B strep and Proteus vulgaris. Proteus with a broad susceptibility profile. CURRENT MEDICATIONS: Include; 1. Linezolid. 2. Zosyn. ASSESSMENT AND PLAN: We will switch her to Rocephin and Flagyl. Discontinue remainder antimicrobials. Continue evaluating wound. Dr. Clement is going to decide on Saturday if further surgical debridement is necessary. Once her evaluation is concluded, then we will decide if the patient needs further imaging studies or not of the site, specifically an MRI of the area. Job ID: [id number]
[2019-01-18] MEDS: cefTRIAXone\\ROCEPHIN 2 GM in Sodium Chloride 0.9% 100 ML IVPB SCH (17:27)
[2019-01-18] MEDS: metroNIDAZOLE 500 MG TAB PO SCH (19:54)
[2019-01-19 05:35] LABS: #Basophils 0.1 thou/uL (0.0-0.2); #Eosinphils 0.5 thou/uL (0.0-0.7); #Lymphocytes 2.8 thou/uL (1.20-3.40); #Monocytes 0.5 thou/uL (0.11-0.59); #Neutrophils 4.4 thou/uL (1.40-6.50); %Basophils 0.7 % (0.0-1.0); %Eosinophils 5.7 % (0.0-10.0); %Lymphocytes 34.4 % (21.0-51.0); %Neutrophils 53.2 % (42.0-75.0); Mean Corpuscular HGB CONC 30.1 g/dL (32.0-36.0); Mean Corpuscular Hemoglobin 22.8 pg (27.0-31.0); Mean Corpuscular Volume 75.8 fL (78.0-98.0); Mean Platelet Volume 7.2 fL (7.4-10.4); Platelet Count 564 thou/uL (130-400); RBC Distribution Width 19.1 % (11.5-14.5); Red Blood Cell (RBC) Count 3.94 mill/uL (4.20-5.40); White Blood Cell (WBC) Count 8.2 thou/uL (4.8-10.8)
[2019-01-19 06:04] LABS: Anion Gap 11 mmol/L (10-20); BUN (Urea Nitrogen) 10 mg/dL (7.0-18.7); CRP (Inflammatory) 4.26 mg/dL (= or < 0.5); Calc. Creatinine Clearance 160 mL/min (70-130); Calcium 9.6 mg/dL (7.8-10.44); Carbon Dioxide 29 mmol/L (22-29); Chloride 101 mmol/L (98-107); Estimated GFR-MDRD 88; Glucose 176 mg/dL (70-105); Sodium 137 mmol/L (136-145)
[2019-01-19] MEDS: Insulin Glargine 45 UNITS in Pre-Filled Syringe 1 EACH SC SCH (09:08)
[2019-01-19] MEDS: Ferrous Sulfate 325 MG TAB PO SCH (09:08)
[2019-01-19] MEDS: metroNIDAZOLE 500 MG TAB PO SCH ×3 (09:09→20:27)
[2019-01-19] MEDS: Multivit, Therapeutic 1 TAB PO SCH (09:09)
[2019-01-19] MEDS: Famotidine 20 MG TAB PO SCH ×2 (09:09→20:27)
[2019-01-19] MEDS: Polyethylene Glycol 3350 17 GM Packet PO SCH ×2 (09:10→20:30)
[2019-01-19] MEDS: traMADol HCl 50 MG TAB PO PRN ×2 (09:14→20:29)
[2019-01-19] MEDS: Loperamide HCl 2 MG CAP PO PRN (09:16)
--- NOTE | 2019-01-19 10:50 | PDOC.HOSPP ---
- Subjective Encounter Date: 01/19/19 Encounter Time: 09:10 Subjective: Patient seen and examined. No new complaints. No overnight events - Objective Vital Signs & Weight: Vital Signs (12 hours) Temp Pulse Resp BP Pulse Ox 01/19/19 08:02 98.1 F 86 18 136/95 H 99 Weight Admit Weight 267 lb 3.2 oz Weight 267 lb 3.2 oz I&O: 01/18/19 01/19/19 01/20/19 06:59 06:59 06:59 Intake Total 1620 1720 Balance 1620 1720 Result Diagrams: 01/19/19 05:07 01/19/19 05:07 Additional Labs: Accuchecks 01/19/19 01/18/19 01/18/19 05:21 19:52 16:34 POC Glucose 193 H 188 H 171 H 01/18/19 01/17/19 11:51 16:30 POC Glucose 167 H 175 H Hospitalist ROS - Review of Systems ENT: denies: ear pain, ear discharge, nose pain, nose discharge, nose congestion , mouth pain, mouth swelling, throat pain, throat swelling, other Respiratory: denies: cough, dry, shortness of breath, hemoptysis, SOB with excertion, pleuritic pain, sputum, wheezing, other Cardiovascular: denies: chest pain, palpitations, orthopnea, paroxysmal noc. dyspnea, edema, light headedness, other Gastrointestinal: denies: nausea, vomiting, abdominal pain, diarrhea, constipation, melena, hematochezia, other Genitourinary: denies: dysuria, frequency, incontinence, hematuria, retention, other Musculoskeletal: denies: neck pain, shoulder pain, arm pain, back pain, hand pain, leg pain, foot pain, other - Medication Medications: Active Medications Generic Name Dose Route Start Last Admin Trade Name Freq PRN Reason Stop Dose Admin Acetaminophen 650 mg 01/14/19 19:40 01/18/19 11:56 Tylenol PO 650 mg Q4H PRN Administration Headache/Fever/Mild Pain (1-3) Acetaminophen/Codeine Phosphate 1 tab 01/14/19 18:29 01/17/19 08:47 Tylenol #3 PO 1 tab Q4H PRN Administration Pain 6-10 Famotidine 20 mg 01/15/19 09:00 01/19/19 09:09 Pepcid PO 20 mg BID ROMAN Administration Ferrous Sulfate 325 mg 01/15/19 09:00 01/19/19 09:08 Feosol PO 325 mg DAILY ROMAN Administration Insulin Glargine 45 units/ 0.45 mls @ 0 mls/hr 01/15/19 09:00 01/19/19 09:08 Miscellaneous Medication SC 0.45 mls DAILY ROMAN Administration Ceftriaxone Sodium 2 gm/ 100 mls @ 200 mls/hr 01/18/19 17:00 01/18/19 17:27 Sodium Chloride IVPB 100 mls Q24HR ROMAN Administration Insulin Human Lispro 0 units 01/14/19 18:30 01/18/19 17:29 Humalog SC 2 unit .MODERATE SLIDING SC PRN Administration Moderate Correctional Scale Insulin Human Lispro 0 units 01/14/19 19:44 01/17/19 21:59 Humalog SC 2 unit .BEDTIME SLIDING SC PRN Administration Bedtime Correctional Scale Loperamide HCl 2 mg 01/15/19 07:44 01/19/19 09:16 Imodium PO 2 mg PRN PRN Administration Diarrhea/Loose Stools Metronidazole 500 mg 01/18/19 21:00 01/19/19 09:09 Flagyl PO 500 mg TID ROMAN Administration Multivitamins 1 tab 01/15/19 09:00 01/19/19 09:09 Theragran PO 1 tab DAILY ROMAN Administration Polyethylene Glycol 17 gm 01/14/19 21:00 01/19/19 09:10 Miralax PO Not Given BID ROMAN Sodium Chloride 10 ml 01/14/19 19:40 01/18/19 17:31 Flush - Normal Saline IVF 10 ml Q12HR PRN Administration Saline Flush Sodium Chloride 10 ml 01/14/19 19:40 01/18/19 11:36 Flush - Normal Saline IVF 10 ml PRN PRN Administration Saline Flush Throat Lozenges 1 matt 01/15/19 07:44 01/18/19 17:30 Cepastat Lozenges PO 1 matt Q2H PRN Administration Sore Throat Tramadol HCl 50 mg 01/14/19 18:24 01/19/19 09:14 Ultram PO 50 mg Q6H PRN Administration Pain 1-5 - Exam General Appearance: NAD, awake alert Eye: PERRL, anicteric sclera ENT: normocephalic atraumatic, no oropharyngeal lesions Neck: supple, symmetric, no JVD Heart: RRR, no murmur, no gallops, no rubs Respiratory: CTAB, no wheezes, no rales, no ronchi Gastrointestinal: soft, non-tender, non-distended, normal bowel sounds Extremities - other findings: both feet with dressing Skin: normal turgor, no lesions Neurological: cranial nerve grossly intact, no focal deficits Musculoskeletal: normal tone, normal strength Psychiatric: normal affect, normal behavior Hosp A/P (1) Diabetic foot ulcer Code(s): E11.621 - TYPE 2 DIABETES MELLITUS WITH FOOT ULCER; L97.509 - NON- PRESSURE CHRONIC ULCER OTH PRT UNSP FOOT W UNSP SEVERITY Status: Acute Qualifiers: Diabetic foot ulcer location: midfoot Diabetes mellitus type: type 2 Laterality: left Non-pressure ulcer stage: with necrosis of muscle Qualified Code(s): E11.621 - Type 2 diabetes mellitus with foot ulcer; L97.423 - Non-pressure chronic ulcer of left heel and midfoot with necrosis of muscle (2) Obesity (BMI 30-39.9) Code(s): E66.9 - OBESITY, UNSPECIFIED Status: Chronic (3) Fibroid uterus Code(s): D25.9 - LEIOMYOMA OF UTERUS, UNSPECIFIED Status: Chronic Qualifiers: Uterine leiomyoma location: unspecified location Qualified Code(s): D25.9 - Leiomyoma of uterus, unspecified (4) PVD (peripheral vascular disease) Code(s): I73.9 - PERIPHERAL VASCULAR DISEASE, UNSPECIFIED Status: Chronic (5) Bipolar disorder Code(s): F31.9 - BIPOLAR DISORDER, UNSPECIFIED Status: Chronic Qualifiers: (6) DM type 2 (diabetes mellitus, type 2) Status: Chronic (7) Hypertension Code(s): I10 - ESSENTIAL (PRIMARY) HYPERTENSION Status: Chronic Qualifiers: (8) Microcytic anemia Code(s): D50.9 - IRON DEFICIENCY ANEMIA, UNSPECIFIED Status: Chronic - Plan old records reviewed/req, continue antibiotics 01/15/19- pt refused to see surgeon and go for debridement, asking for second opinion, will consult ID, will add Zosyn, continue wound care, she will likley need amputation but pt is reluctant for now, control diabetes, home medication reconciled. will repeat labs tomorrow, medication reviewed as above, symptomatic treatment. 01/16/19- currently on levaquin, zosyn and zyvox, will consult dr piper for surgical debridement, continue wound care 01/17/19- s/p I & D yesterday, follow on culture result, continue zosyn, zyvox, , wound care 01/18/19- continue zosyn and zyvox, tomorrow surgeon will re evaluate her wound and decide if she needs more debridement, continue wound care, will repeat labs tomorrow, medication reviewed as above, symptomatic treatment 01/19/19- continue wound care, continue zyvox and zosyn and tomorrow dr piper will evaluate wound and then decide if she will need repeat MRI or more debridement.
[2019-01-19] MEDS: HumaLOG 300 UNITS/3 ML VIAL SC PRN ×2 (12:03→17:04)
[2019-01-19] MEDS: Acetaminophen/Codeine 30-300mg Tablet PO PRN (12:06)
[2019-01-19] MEDS: cefTRIAXone\\ROCEPHIN 2 GM in Sodium Chloride 0.9% 100 ML IVPB SCH (17:04)
[2019-01-20] MEDS: Insulin Glargine 45 UNITS in Pre-Filled Syringe 1 EACH SC SCH (08:22)
[2019-01-20] MEDS: Multivit, Therapeutic 1 TAB PO SCH (08:23)
[2019-01-20] MEDS: Cepastat Lozenges 1 LOZ PO PRN (08:23)
[2019-01-20] MEDS: Ferrous Sulfate 325 MG TAB PO SCH (08:23)
[2019-01-20] MEDS: metroNIDAZOLE 500 MG TAB PO SCH ×3 (08:23→20:06)
[2019-01-20] MEDS: Polyethylene Glycol 3350 17 GM Packet PO SCH ×2 (08:23→20:07)
[2019-01-20] MEDS: Famotidine 20 MG TAB PO SCH ×2 (08:23→20:06)
--- NOTE | 2019-01-20 12:07 | PDOC.HOSPP ---
- Subjective Encounter Date: 01/20/19 Encounter Time: 09:30 Subjective: Patient seen and examined. No new complaints. No overnight events - Objective Vital Signs & Weight: Vital Signs (12 hours) Temp Pulse Resp BP Pulse Ox 01/20/19 08:00 97 01/20/19 07:33 97.5 F L 71 16 111/72 97 Weight Admit Weight 267 lb 3.2 oz Weight 267 lb 3.2 oz I&O: 01/19/19 01/20/19 01/21/19 06:59 06:59 06:59 Intake Total 1720 Balance 1720 Result Diagrams: 01/19/19 05:07 01/19/19 05:07 Additional Labs: Accuchecks 01/20/19 01/19/19 01/19/19 04:08 19:53 16:17 POC Glucose 157 H 156 H 155 H 01/19/19 11:46 POC Glucose 213 H Hospitalist ROS - Review of Systems ENT: denies: ear pain, ear discharge, nose pain, nose discharge, nose congestion , mouth pain, mouth swelling, throat pain, throat swelling, other Respiratory: denies: cough, dry, shortness of breath, hemoptysis, SOB with excertion, pleuritic pain, sputum, wheezing, other Cardiovascular: denies: chest pain, palpitations, orthopnea, paroxysmal noc. dyspnea, edema, light headedness, other Gastrointestinal: denies: nausea, vomiting, abdominal pain, diarrhea, constipation, melena, hematochezia, other Genitourinary: denies: dysuria, frequency, incontinence, hematuria, retention, other Musculoskeletal: denies: neck pain, shoulder pain, arm pain, back pain, hand pain, leg pain, foot pain, other Skin: denies: rash, lesions, moncho, bruising, other - Medication Medications: Active Medications Generic Name Dose Route Start Last Admin Trade Name Freq PRN Reason Stop Dose Admin Acetaminophen 650 mg 01/14/19 19:40 01/18/19 11:56 Tylenol PO 650 mg Q4H PRN Administration Headache/Fever/Mild Pain (1-3) Acetaminophen/Codeine Phosphate 1 tab 01/14/19 18:29 01/19/19 12:06 Tylenol #3 PO 1 tab Q4H PRN Administration Pain 6-10 Famotidine 20 mg 01/15/19 09:00 01/20/19 08:23 Pepcid PO 20 mg BID ROMAN Administration Ferrous Sulfate 325 mg 01/15/19 09:00 01/20/19 08:23 Feosol PO 325 mg DAILY ROMAN Administration Insulin Glargine 45 units/ 0.45 mls @ 0 mls/hr 01/15/19 09:00 01/20/19 08:22 Miscellaneous Medication SC 0.45 mls DAILY ROMAN Administration Ceftriaxone Sodium 2 gm/ 100 mls @ 200 mls/hr 01/18/19 17:00 01/19/19 17:04 Sodium Chloride IVPB 100 mls Q24HR ROMAN Administration Insulin Human Lispro 0 units 01/14/19 18:30 01/19/19 17:04 Humalog SC 2 unit .MODERATE SLIDING SC PRN Administration Moderate Correctional Scale Insulin Human Lispro 0 units 01/14/19 19:44 01/17/19 21:59 Humalog SC 2 unit .BEDTIME SLIDING SC PRN Administration Bedtime Correctional Scale Loperamide HCl 2 mg 01/15/19 07:44 01/19/19 09:16 Imodium PO 2 mg PRN PRN Administration Diarrhea/Loose Stools Metronidazole 500 mg 01/18/19 21:00 01/20/19 08:23 Flagyl PO 500 mg TID ROMAN Administration Multivitamins 1 tab 01/15/19 09:00 01/20/19 08:23 Theragran PO 1 tab DAILY ROMAN Administration Polyethylene Glycol 17 gm 01/14/19 21:00 01/20/19 08:23 Miralax PO Not Given BID ROMAN Sodium Chloride 10 ml 01/14/19 19:40 01/18/19 17:31 Flush - Normal Saline IVF 10 ml Q12HR PRN Administration Saline Flush Sodium Chloride 10 ml 01/14/19 19:40 01/18/19 11:36 Flush - Normal Saline IVF 10 ml PRN PRN Administration Saline Flush Throat Lozenges 1 matt 01/15/19 07:44 01/20/19 08:23 Cepastat Lozenges PO 1 matt Q2H PRN Administration Sore Throat Tramadol HCl 50 mg 01/14/19 18:24 01/19/19 20:29 Ultram PO 50 mg Q6H PRN Administration Pain 1-5 - Exam General Appearance: NAD, awake alert Eye: PERRL, anicteric sclera ENT: normocephalic atraumatic, no oropharyngeal lesions Neck: supple, symmetric, no JVD, no thyromegaly Heart: RRR, no murmur, no gallops, no rubs Respiratory: CTAB, no wheezes, no rales, no ronchi Gastrointestinal: soft, non-tender, non-distended, normal bowel sounds Extremities - other findings: both feet with dressing Skin: normal turgor, no lesions Neurological: no focal deficits Musculoskeletal: normal tone, normal strength Psychiatric: normal affect, normal behavior Hosp A/P (1) Diabetic foot ulcer Code(s): E11.621 - TYPE 2 DIABETES MELLITUS WITH FOOT ULCER; L97.509 - NON- PRESSURE CHRONIC ULCER OTH PRT UNSP FOOT W UNSP SEVERITY Status: Acute Qualifiers: Diabetic foot ulcer location: midfoot Diabetes mellitus type: type 2 Laterality: left Non-pressure ulcer stage: with necrosis of muscle Qualified Code(s): E11.621 - Type 2 diabetes mellitus with foot ulcer; L97.423 - Non-pressure chronic ulcer of left heel and midfoot with necrosis of muscle (2) Obesity (BMI 30-39.9) Code(s): E66.9 - OBESITY, UNSPECIFIED Status: Chronic (3) Fibroid uterus Code(s): D25.9 - LEIOMYOMA OF UTERUS, UNSPECIFIED Status: Chronic Qualifiers: Uterine leiomyoma location: unspecified location Qualified Code(s): D25.9 - Leiomyoma of uterus, unspecified (4) PVD (peripheral vascular disease) Code(s): I73.9 - PERIPHERAL VASCULAR DISEASE, UNSPECIFIED Status: Chronic (5) Bipolar disorder Code(s): F31.9 - BIPOLAR DISORDER, UNSPECIFIED Status: Chronic Qualifiers: (6) DM type 2 (diabetes mellitus, type 2) Status: Chronic (7) Hypertension Code(s): I10 - ESSENTIAL (PRIMARY) HYPERTENSION Status: Chronic Qualifiers: (8) Microcytic anemia Code(s): D50.9 - IRON DEFICIENCY ANEMIA, UNSPECIFIED Status: Chronic - Plan old records reviewed/req, continue antibiotics 01/15/19- pt refused to see surgeon and go for debridement, asking for second opinion, will consult ID, will add Zosyn, continue wound care, she will likley need amputation but pt is reluctant for now, control diabetes, home medication reconciled. will repeat labs tomorrow, medication reviewed as above, symptomatic treatment. 01/16/19- currently on levaquin, zosyn and zyvox, will consult dr piper for surgical debridement, continue wound care 01/17/19- s/p I & D yesterday, follow on culture result, continue zosyn, zyvox, , wound care 01/18/19- continue zosyn and zyvox, tomorrow surgeon will re evaluate her wound and decide if she needs more debridement, continue wound care, will repeat labs tomorrow, medication reviewed as above, symptomatic treatment 01/19/19- continue wound care, continue zyvox and zosyn and tomorrow dr ppier will evaluate wound and then decide if she will need repeat MRI or more debridement. 01/20/19- today dr piper will evaluate wound and then will decide if needs more debridement, or imaging or oral vs iv antibiotic on discharge, dr england following, continue wound care
[2019-01-20] MEDS: HumaLOG 300 UNITS/3 ML VIAL SC PRN ×2 (12:51→20:13)
[2019-01-20] MEDS: cefTRIAXone\\ROCEPHIN 2 GM in Sodium Chloride 0.9% 100 ML IVPB SCH (17:01)
[2019-01-20] MEDS: traMADol HCl 50 MG TAB PO PRN (18:08)
[2019-01-20] MEDS: Loperamide HCl 2 MG CAP PO PRN (20:10)
--- NOTE | 2019-01-20 20:22 | PDOC.GSPN ---
Surgery Progress Note: Subj - Subjective Narrative: Patient is feeling much better since last week. Her foot is no longer sore in the swelling has gone down. Packing was removed and was clean. There is no odor. No expressible drainage. No pain with palpation of the foot. The cavity is clean and granulating with only minimal surface slough. No palpable bone in the wound. Continue with wound packing. No need for further surgical debridement. Antibiotics per Dr. Marie. Surgery Progress Note: Obj - Vital signs Vital signs: Vital Signs - Most Recent Temp Pulse Resp BP Pulse Ox 97.5 F L 71 16 111/72 97 01/20/19 07:33 01/20/19 07:33 01/20/19 07:33 01/20/19 07:33 01/20/19 08:00 Surgery Progress Note: Results - Labs Result Diagrams: 01/19/19 05:07 01/19/19 05:07 Lab results: Laboratory Results - last 24 hr 01/20/19 19:42 POC Glucose 228 H
[2019-01-20] MEDS: Acetaminophen/Codeine 30-300mg Tablet PO PRN (22:56)
[2019-01-21] MEDS: Famotidine 20 MG TAB PO SCH ×2 (09:48→20:33)
[2019-01-21] MEDS: metroNIDAZOLE 500 MG TAB PO SCH ×3 (09:48→20:33)
[2019-01-21] MEDS: Ferrous Sulfate 325 MG TAB PO SCH (09:48)
[2019-01-21] MEDS: Multivit, Therapeutic 1 TAB PO SCH (09:48)
[2019-01-21] MEDS: Insulin Glargine 45 UNITS in Pre-Filled Syringe 1 EACH SC SCH (09:52)
[2019-01-21] MEDS: Acetaminophen/Codeine 30-300mg Tablet PO PRN ×3 (09:52→20:41)
[2019-01-21] MEDS: Polyethylene Glycol 3350 17 GM Packet PO SCH ×2 (09:53→20:33)
[2019-01-21] MEDS: HumaLOG 300 UNITS/3 ML VIAL SC PRN ×2 (12:58→20:46)
[2019-01-21] MEDS: traMADol HCl 50 MG TAB PO PRN ×2 (12:58→23:43)
--- NOTE | 2019-01-21 16:09 | PRG ---
DATE OF SERVICE: 01/21/2019 SUBJECTIVE: The patient feels better. No pain. No dyspnea or abdominal pain. OBJECTIVE: VITAL SIGNS: Normal. LUNGS: Clear. HEART: S1 and S2, regular rate. EXTREMITIES: Foot with the area of debridement noted. Dr. Clement is not going to do any further treatment at this point in time. LABORATORY DATA: White cell count 8.2, hemoglobin 9.0, platelets 564. Microbiology with group B Strep and Proteus vulgaris. ASSESSMENT AND DISCUSSION: Type 2 diabetes, neuropathy, multiple complications in right and left feet which culminated in amputations, almost complete transmetatarsal amputations, now necrotizing infection of the lateral aspect of the left side with limited I and D. We will consider transitioning her to oral ciprofloxacin plus Augmentin and treat her for protracted period of time, probably 6 weeks. Job ID: [id number]
[2019-01-21] MEDS: cefTRIAXone\\ROCEPHIN 2 GM in Sodium Chloride 0.9% 100 ML IVPB SCH (16:28)
[2019-01-21] MEDS: Loperamide HCl 2 MG CAP PO PRN (16:34)
--- NOTE | 2019-01-21 18:47 | PDOC.HOSPP ---
- Subjective Encounter Date: 01/21/19 Encounter Time: 14:30 Subjective: Some pain when leg is not elevated and swelling increases; otherwise is comfortable. Tolerating antibiotics thus far. No further surgery planned. Requested meals on wheels/home provider/assistance with nutritional supplements. - Objective Vital Signs & Weight: Vital Signs (12 hours) Temp Pulse Resp BP Pulse Ox 01/21/19 08:00 100 01/21/19 07:47 97.5 F L 78 20 148/88 H 100 Weight Admit Weight 267 lb 3.2 oz Weight 267 lb 3.2 oz Result Diagrams: 01/19/19 05:07 01/19/19 05:07 Additional Labs: Accuchecks 01/21/19 01/21/19 01/21/19 16:47 11:50 04:17 POC Glucose 166 H 190 H 123 H 01/20/19 19:42 POC Glucose 228 H Hospitalist ROS - Medication Medications: Active Medications Generic Name Dose Route Start Last Admin Trade Name Freq PRN Reason Stop Dose Admin Acetaminophen 650 mg 01/14/19 19:40 01/18/19 11:56 Tylenol PO 650 mg Q4H PRN Administration Headache/Fever/Mild Pain (1-3) Acetaminophen/Codeine Phosphate 1 tab 01/14/19 18:29 01/21/19 16:34 Tylenol #3 PO 1 tab Q4H PRN Administration Pain 6-10 Famotidine 20 mg 01/15/19 09:00 01/21/19 09:48 Pepcid PO 20 mg BID ROMAN Administration Ferrous Sulfate 325 mg 01/15/19 09:00 01/21/19 09:48 Feosol PO 325 mg DAILY ROMAN Administration Insulin Glargine 45 units/ 0.45 mls @ 0 mls/hr 01/15/19 09:00 01/21/19 09:52 Miscellaneous Medication SC 0.45 mls DAILY ROMAN Administration Ceftriaxone Sodium 2 gm/ 100 mls @ 200 mls/hr 01/18/19 17:00 01/21/19 16:28 Sodium Chloride IVPB 100 mls Q24HR ROMAN Administration Insulin Human Lispro 0 units 01/14/19 18:30 01/21/19 12:58 Humalog SC 2 unit .MODERATE SLIDING SC PRN Administration Moderate Correctional Scale Insulin Human Lispro 0 units 01/14/19 19:44 01/20/19 20:13 Humalog SC 2 unit .BEDTIME SLIDING SC PRN Administration Bedtime Correctional Scale Loperamide HCl 2 mg 01/15/19 07:44 01/21/19 16:34 Imodium PO 2 mg PRN PRN Administration Diarrhea/Loose Stools Metronidazole 500 mg 01/18/19 21:00 01/21/19 16:28 Flagyl PO 500 mg TID ROMAN Administration Multivitamins 1 tab 01/15/19 09:00 01/21/19 09:48 Theragran PO 1 tab DAILY ROMAN Administration Polyethylene Glycol 17 gm 01/14/19 21:00 01/21/19 09:53 Miralax PO Not Given BID ROMAN Sodium Chloride 10 ml 01/14/19 19:40 01/18/19 17:31 Flush - Normal Saline IVF 10 ml Q12HR PRN Administration Saline Flush Sodium Chloride 10 ml 01/14/19 19:40 01/18/19 11:36 Flush - Normal Saline IVF 10 ml PRN PRN Administration Saline Flush Throat Lozenges 1 matt 01/15/19 07:44 01/20/19 08:23 Cepastat Lozenges PO 1 matt Q2H PRN Administration Sore Throat Tramadol HCl 50 mg 01/14/19 18:24 01/21/19 12:58 Ultram PO 50 mg Q6H PRN Administration Pain 1-5 - Exam General Appearance: awake alert Eye: anicteric sclera ENT: normocephalic atraumatic Neck: supple, no JVD Heart: RRR Respiratory: CTAB Gastrointestinal: soft, non-tender Extremities - other findings: BLE with dressing in place Skin: no rashes Neurological: no focal deficits Musculoskeletal: normal strength Psychiatric: A&O x 3 Hosp A/P (1) Diabetic foot infection Code(s): E11.628 - TYPE 2 DIABETES MELLITUS WITH OTHER SKIN COMPLICATIONS; L08.9 - LOCAL INFECTION OF THE SKIN AND SUBCUTANEOUS TISSUE, UNSP Status: Acute (2) Microcytic anemia Code(s): D50.9 - IRON DEFICIENCY ANEMIA, UNSPECIFIED Status: Chronic (3) Obesity (BMI 30-39.9) Code(s): E66.9 - OBESITY, UNSPECIFIED Status: Chronic (4) Bipolar disorder Code(s): F31.9 - BIPOLAR DISORDER, UNSPECIFIED Status: Chronic Qualifiers: (5) DM type 2 (diabetes mellitus, type 2) Status: Chronic (6) Fibroid uterus Code(s): D25.9 - LEIOMYOMA OF UTERUS, UNSPECIFIED Status: Chronic Qualifiers: Uterine leiomyoma location: unspecified location Qualified Code(s): D25.9 - Leiomyoma of uterus, unspecified (7) Hypertension Code(s): I10 - ESSENTIAL (PRIMARY) HYPERTENSION Status: Chronic Qualifiers: (8) PVD (peripheral vascular disease) Code(s): I73.9 - PERIPHERAL VASCULAR DISEASE, UNSPECIFIED Status: Chronic - Plan ID - Discussed with Dr. Marie, note reviewed; considering cipro/augmentin. Per surgical note, no further debridement planned. Wound care dressing changes ( home health) with weekly wound care appts to follow Case management - home health/supplements/meals on wheels/provider services Endo - continue current insulin High risk: age/comorbidities/risk of worsened infection and limb loss
[2019-01-21] MEDS: Cepastat Lozenges 1 LOZ PO PRN (20:41)
[2019-01-22] MEDS: Famotidine 20 MG TAB PO SCH (09:45)
[2019-01-22] MEDS: Multivit, Therapeutic 1 TAB PO SCH (09:45)
[2019-01-22] MEDS: Insulin Glargine 45 UNITS in Pre-Filled Syringe 1 EACH SC SCH (09:45)
[2019-01-22] MEDS: metroNIDAZOLE 500 MG TAB PO SCH (09:45)
[2019-01-22] MEDS: Ferrous Sulfate 325 MG TAB PO SCH (09:45)
[2019-01-22] MEDS: Acetaminophen/Codeine 30-300mg Tablet PO PRN (09:51)
[2019-01-22] MEDS: Polyethylene Glycol 3350 17 GM Packet PO SCH (10:08)
--- NOTE | 2019-01-22 11:27 | PDOC.GSPN ---
Surgery Progress Note: Subj - Subjective Narrative: Patient is feeling good. No pain in her foot. The wound is clean and granulating and the tunneling has significantly filled in. No expressible drainage. No induration purulence or odor. When she is set up with wound care she is ready for discharge from a surgical standpoint. I will see her in the outpatient wound care in a week or 2. Signing off. Surgery Progress Note: Obj - Vital signs Vital signs: Vital Signs - Most Recent Temp Pulse Resp BP Pulse Ox 98.0 F 76 20 96/63 100 01/22/19 08:00 01/22/19 08:00 01/22/19 08:00 01/22/19 08:00 01/22/19 08:00 Surgery Progress Note: Results - Labs Result Diagrams: 01/19/19 05:07 01/19/19 05:07 Lab results: Laboratory Results - last 24 hr 01/22/19 05:26 POC Glucose 126 H
[2019-01-22 13:24] VITALS: BP 123/74; TEMP 97.5
[2019-01-22] MEDS ORDERED: Ciprofloxacin 500 MG TAB PO SCH (20:00)
[2019-01-22] MEDS ORDERED: Amoxicillin/Potassium Clav 875 MG TAB PO SCH (21:00)
--- NOTE | 2019-01-23 01:50 | DIS ---
DATE OF ADMISSION: 01/14/2019 DATE OF DISCHARGE: 01/22/2019 DISCHARGE DISPOSITION: Home. PRIMARY CARE PHYSICIAN: Dr. Clinton Cline. CHIEF COMPLAINT/REASON FOR ADMISSION: Infection to the left foot. PRINCIPAL DIAGNOSIS: On admission, left foot diabetic wound infection. DISCHARGE DIAGNOSES: 1. Necrotizing infection, left foot, in the context of insulin dependent diabetes with peripheral neuropathy (infection present on admission) secondary to Streptococcus agalactiae group B and Proteus mirabilis. 2. Hypothyroidism. 3. Obesity. 4. Bipolar disorder. 5. History of clavicular osteomyelitis in the distant past, requiring IV antibiotics. 6. Chronic plantar foot neuropathic ulcerations. 7. Mild microcytic anemia. 8. Diabetic foot wound secondary to Streptococcus agalactiae group B and Proteus mirabilis. CONSULTS: During hospital stay, General Surgery, Ronni Cedeno MD and aLy Clement MD. Infectious Disease, Osmin Marie MD. PROCEDURES: On 01/17/2019, surgical debridement left foot under the care of Dr. Clement. IMAGING STUDIES: On 01/14/2019, foot x-ray, soft tissue edema, no evidence of osteomyelitis. HOSPITAL COURSE: Ms. Mitchell is a delightful 48-year-old female , presenting to the hospital with worsening infection in the left foot on the background history of previous foot infections requiring resection. She has had numerous challenges with infection in the past, but had recently seen Dr. Cedeno in the office, initiated on oral antibiotics. However, pain/swelling/erythema plantar and lateral left foot continued to worsen, presented once again to the emergency department with increased drainage. X-ray performed, no evidence of osteomyelitis. She is noted to have soft tissue swelling at the level of previous amputation as well as dorsum of the foot with patchy soft-tissue gas attenuation in the plantar aspect. She is also followed on a routine basis by Wound Care for an ulceration on the plantar base of the right foot, which has not been an issue during this hospital stay. On admission, white blood cell count 13.9. Additional laboratory unremarkable. Serum sodium 132, creatinine 0.97, and BUN 13. Lactic acid was drawn and was normal. No evidence of DVT on left lower extremity Doppler study. The patient was seen in conjunction with Infectious Disease, initiated on broad-spectrum IV antibiotic therapy. She underwent surgical debridement under the care of Dr. Clement on 01/17/2019. Since that time, she has been followed by Wound Care. She was seen and evaluated once again by Dr. Marie on 01/21/2019, with recommendation for 6 weeks of oral Augmentin and ciprofloxacin. Additionally, seen and evaluated by surgical team earlier this morning, no additional debridement required at this time. She will continue with wound care in the outpatient setting. I saw and evaluated the patient, she is tolerating antibiotics. We discussed transitioning to oral antibiotics, which she is eager to do and eager to transition to home. Pain controlled on minimal oral analgesics. Case management consulted for assistance with nutritional supplementations, recommended by Nutritional Team, as well as establishing next appointment time with wound care on 01/26/2019 at 11: [address] Clement kindly offered to evaluate the patient at the same time as her wound care visit for progress of healing. White blood cell count normalized, she is afebrile, pain controlled. As such, deemed stable to transition to home. PERTINENT LABORATORY DATA: CRP on 01/19/2019, is 4.26. Wound culture, Streptococcus agalactiae group B, presumptive Proteus mirabilis. Blood cultures x2 negative on admission. PHYSICAL EXAMINATION: LUNGS: Clear to auscultation. HEART: Regular rate and rhythm. ABDOMEN: Soft, nontender. EXTREMITIES: Her wounds are presently dressed. She will continue care for her right plantar ulceration, as well as the wound in question which led to this hospitalization overlying her left foot. DISCHARGE MEDICATIONS: 1. Augmentin 875 p.o. q.12 hours, prescription provided for 42 days supply. 2. Ciprofloxacin 500 mg p.o. q.12 hours. Prescription provided for 42 days supply. 3. Zofran 4 mg p.o. q.6 hours p.r.n. nausea. Prescription provided for 30 tablets. 4. Tylenol No.3 one p.o. q.4 hours p.r.n. pain, it is same as admission. 5. Ferrous sulfate 325 mg p.o. once daily, same as admission. 6. Multivitamin p.o. daily. 7. Vitamin D2 32808 units p.o. q.7 day, same as admission. 8. Levemir 45 units subcutaneously daily, same as admission. 9. Iron/folate/multivitamin p.o. daily, same as admission. 10. Tramadol 50 mg p.o. q.6 hours p.r.n. pain, same as admission. DIET: Diabetic. ACTIVITY: As tolerated. FOLLOWUP: Follow up wound care on 01/26/2019 at 11:30 am. She will follow up with Dr. Clement at the same time. Additionally, follow up with Dr. Marie in 2-3 weeks in the ID office, in regard to antibiotics. TIME SPENT: Time spent in care and discharge planning is 50 minutes. Job ID: [id number] MTDD
--- NOTE | 2019-01-23 06:22 | PQF ---
JOSE SHIRLEY RICARDO S MD [id number] CLINICAL DOCUMENTATION CLARIFICATION FORM: POST DISCHARGE Addendum to original discharge summary date: ____ Late entry note date: __ DATE: 01-23-19 ATTN:Osmin Melendez Please exercise your independent, professional judgment in responding to the clarification form. Clinical indicators are provided on the bottom of this form for your review Can you please specify if the patient infection of the left foot is a complication of amputation? Please check appropriate box(s): [ ] infection of the left foot is a complication of amputation [ ] infection of the left foot is not a complication of amputation [ ] Other diagnosis please specify: [ ] Unable to determine CLINICAL INDICATORS: HP 01/[address] Burnett he has been dealing with an infection involving the site of previous amputation HP 01/[address] Burnett pain and swelling continue to worsen and now experiencing pain in calf HP 01/[address] Burnett noted to have soft tissue swelling at the level of the amputation HP 01/[address] Burnett amputated 5th metatarsal concerning for acute infection Consultation 01/[address] Marie transmetatarsal amputation on the left, now with necrotizing infection in the lateral aspect of the left lateral amputation site with foul odor DS 01/22 diabetic foot wound secondary to Streptococcus agalactiae group B and Proteus mirabilis RISK FACTORS: HP 01/14-Amputation of left foot 3 years ago HP 01/14- Insulin dependent DM HP 01/14- Obesity DS 01/22 Chronic plantar foot neuropathic ulcerations TREATMENT: 01/17 Dr. Clement- Excisional debridement JUN 26 Clindamycin 600mg IV JUN 26- Levofloxacin 750mg IV DS 01/22- Foot xray DS 01/22 General surgery consult DS 01/22 Wound culture (This form is maintained as a part of the permanent medical record) 2014 [employer]. All Rights Reserved Gila [email or web address] [not provided] MTDD
--- NOTE | 2019-01-26 06:53 | PQF ---
JOSE SHIRLEY KATE [id number] CLINICAL DOCUMENTATION CLARIFICATION FORM: POST DISCHARGE Addendum to original discharge summary date: ____ Late entry note date: __ DATE: 01-26-2019 ATTN:Christy Arizmendi Please exercise your independent, professional judgment in responding to the clarification form. Clinical indicators are provided on the bottom of this form for your review Can you please specify if the patient infection of the left foot is a complication of amputation? Please check appropriate box(s): [ ] infection of the left foot is a complication of amputation [ x ] infection of the left foot is not a complication of amputation [ ] Other diagnosis please specify: [ ] Unable to determine CLINICAL INDICATORS: HP 01/[address] Burnett he has been dealing with an infection involving the site of previous amputation HP 01/[address] Burnett pain and swelling continue to worsen and now experiencing pain in calf HP 01/[address] Burnett noted to have soft tissue swelling at the level of the amputation HP 01/[address] Burnett amputated 5th metatarsal concerning for acute infection Consultation 01/[address] Marie transmetatarsal amputation on the left, now with necrotizing infection in the lateral aspect of the left lateral amputation site with foul odor DS 01/22 diabetic foot wound secondary to Streptococcus agalactiae group B and Proteus mirabilis RISK FACTORS: HP 01/14-Amputation of left foot 3 years ago HP 01/14- Insulin dependent DM HP 01/14- Obesity DS 01/22 Chronic plantar foot neuropathic ulcerations TREATMENT: 01/17 Dr. Clement- Excisional debridement JUN 26 Clindamycin 600mg IV JUN 26- Levofloxacin 750mg IV DS 01/22- Foot xray DS 01/22 General surgery consult DS 01/22 Wound culture (This form is maintained as a part of the permanent medical record) 2014 [employer]. All Rights Reserved Gila [email or web address] [not provided] [email or web address]
== END 2019-01-22 13:27 | disposition home or self-care (01) | DRG 623 ==
LOC: ERS 14:53 → T4-A 17:52
PROVIDERS: ADMIT Internal Medicine; ATTEND Internal Medicine
PROC: 0JBR0ZZ Excision of Left Foot Subcutaneous Tissue and Fascia, Open Approach (ICD-10-PCS; principal; 2019-01-17)
DX: E11.621 Type 2 diabetes mellitus with foot ulcer (principal); L97.423 Non-pressure chronic ulcer of left heel and midfoot with necrosis of muscle; E66.9 Obesity, unspecified; E11.65 Type 2 diabetes mellitus with hyperglycemia; F17.210 Nicotine dependence, cigarettes, uncomplicated; E78.5 Hyperlipidemia, unspecified; F31.9 Bipolar disorder, unspecified; D25.9 Leiomyoma of uterus, unspecified; E11.40 Type 2 diabetes mellitus with diabetic neuropathy, unspecified; D50.9 Iron deficiency anemia, unspecified; Z60.2 Problems related to living alone; E05.90 Thyrotoxicosis, unspecified without thyrotoxic crisis or storm; Z98.51 Tubal ligation status; Z88.8 Allergy status to other drugs, medicaments and biological substances; Z91.013 Allergy to seafood; Z88.1 Allergy status to other antibiotic agents; Z79.4 Long term (current) use of insulin; Z89.422 Acquired absence of other left toe(s); Z89.421 Acquired absence of other right toe(s); Z68.37 Body mass index [BMI] 37.0-37.9, adult; E11.51 Type 2 diabetes mellitus with diabetic peripheral angiopathy without gangrene; B96.4 Proteus (mirabilis) (morganii) as the cause of diseases classified elsewhere; B96.89 Other specified bacterial agents as the cause of diseases classified elsewhere
CPT/HCPCS: 36415; 36416; 80048; 80053; 83036; 83605; 85025; 85652; 86140; 87040; 87070; 87076; 87077; 87186; 87205; 93005; 93010; 96361; 96374; 97602; A4218; J0696; J1815; J1956; J2543; J3490; S0028

== ENCOUNTER 2019-01-26 12:10 | Outpatient (CLI) | payer MEDICARE, MEDICAID ==
--- NOTE | 2019-01-26 17:36 | PRG ---
DATE OF SERVICE: 01/26/2019 HISTORY: Ms. Mouna Mitchell is a very pleasant 48-year-old who presents to the [facility] Center for evaluation of wounds of the plantar surface of the right and left feet. The patient also has a wound of the left lateral foot subsequent to debridement at bedside by Dr. Lay Clement on 01/17/2019. The patient was discharged to home on Augmentin and ciprofloxacin, which she will be taking for the next 6 weeks. The patient states she has followup appointments with Dr. Marie and Dr. Clement. The patient states that she upon her discharge from [facility] has continued to perform dressing changes of Xeroform gauze for her right and left foot wounds. PHYSICAL EXAMINATION: VITAL SIGNS: Temperature 98.0, pulse 98, respirations 14, blood pressure 134/67. Accu-Chek 156. EXTREMITIES: A wound of the plantar surface of the right foot is present, which measures approximately 7.0 x 2.6 cm. A wound of the plantar surface of the left foot is present, which measures approximately 3.0 x 3.5 cm. An ulceration of the left lateral foot is present, which measures approximately 3.4 x 3.0 cm. The depth of the wound is approximately 3 cm. Granulation tissue is present within the margins of each wound. No purulent drainage is associated with any of the wounds. No erythema of the skin surrounding any of the wounds is present. No maceration of the skin of the periwound of any of the wounds is noted. No significant edema of the right or left foot is present on exam today. ASSESSMENT AND PLAN: 1. Multiple wounds of right and left feet as described above. Dressing changes of Xeroform gauze will be continued on a daily basis after cleansing and irrigation. The patient will continue to perform her own dressing changes. ABDs, gauze, and Coban will be utilized as secondary dressings. The patient is to continue Augmentin and ciprofloxacin as prescribed at the time of discharge. The patient is to keep her followup appointments with General Surgery and Infectious Diseases. I will see Ms. Mitchell again after she has been seen by Dr. Clement and Dr. Marie. 2. Diabetes mellitus. The patient's Accu-Chek in clinic today is 156. The patient has been told that for optimal wound healing, her blood glucoses should remain below 150. 3. History of hypothyroidism. 4. History of obstructive sleep apnea. 5. History of hypertension. Job ID: [id number]
== END 2019-01-26 12:11 | disposition home or self-care (01) ==
LOC: WCC 12:10
PROVIDERS: ATTEND Family Medicine
DX: S91.301D Unspecified open wound, right foot, subsequent encounter (principal); S91.302D Unspecified open wound, left foot, subsequent encounter; Z86.39 Personal history of other endocrine, nutritional and metabolic disease; Z86.79 Personal history of other diseases of the circulatory system; Z86.69 Personal history of other diseases of the nervous system and sense organs
CPT/HCPCS: A4218

== ENCOUNTER 2019-02-26 13:29 | Outpatient (CLI) | payer MEDICARE, MEDICAID ==
--- NOTE | 2019-02-26 18:11 | PRG ---
DATE OF SERVICE: 02/26/2019 HISTORY: Ms. Mouna Mitchell is a very pleasant 48-year-old, who presents to the Wound Center for evaluation of wounds of the plantar surface of the right and left feet. The patient also has a wound of the left lateral foot subsequent to debridement at bedside by Dr. Lay Clement on 01/17/2019. The patient was discharged to home on Augmentin and ciprofloxacin. At the time of the patient's last visit, Ms. Mitchell stated that she had followup appointments with Dr. Marie and Dr. Clement. The patient today states that she has not seen either Dr. Marie or Dr. Clement yet. The patient again states that she has continued to perform dressing changes of Xeroform gauze for her right and left foot wound since her discharge from [facility]. PHYSICAL EXAMINATION: VITAL SIGNS: Temperature 98.4, pulse 94, respirations 21, and blood pressure 143/80. Accu-Chek 187. EXTREMITIES: A wound of the plantar surface of the right foot is present, which measures approximately 3.5 x 4.0 cm. A wound of the plantar surface of the left foot is present, which measures approximately 2.5 x 2.5 cm. An ulceration of the left lateral foot is present, which measures approximately 2.2 x 2.5 cm. The depth of the wound is approximately 2.5 cm. The depth of the wound at the time of the patient's last visit was approximately 3 cm. The dimensions of the wound of the plantar surface of the right foot at the time of the patient's last visit was approximately 7.0 x 2.6 cm. The dimensions of the wound of the plantar surface of the left foot at the time of the patient's last visit was approximately 3.0 x 3.5 cm. The dimensions of the ulceration of the left lateral foot at the time of the patient's last visit were approximately 3.4 x 3.0 cm. Granulation tissue is present within the margins of each wound. Nonviable tissue present within the margins of each wound was debrided with an excisional full-thickness debridement. Callus desiccated tissue and undermining at the periphery of each wound were eliminated with the use of scissors. No purulent drainage is associated with any of the wounds. No erythema of the skin surrounding any of the wounds is present. No maceration of the skin of the periwound of any of the wounds is noted. No significant edema of the right or left foot is present on exam today. ASSESSMENT AND PLAN: 1. Multiple wounds of right and left feet as described above. Dressing changes of Xeroform gauze will be continued on a daily basis after cleansing and irrigation. The patient will continue to perform her own dressing changes. ABDs, gauze, and Coban will be utilized as secondary dressings. The patient has been reminded to continue p.o. antibiotics as per Infectious Diseases. I have also encouraged the patient to keep her followup appointments with General Surgery and Infectious Diseases. I will see Ms. Mitchell again in 4 weeks. 2. Diabetes mellitus. The patient's Accu-Chek in clinic today is 187. The patient has been reminded that for optimal wound healing, her blood glucoses should remain below 150. 3. History of hypothyroidism. 4. History of obstructive sleep apnea. 5. History of hypertension. Job ID: [id number]
== END 2019-02-26 13:30 | disposition home or self-care (01) ==
LOC: WCC 13:29
PROVIDERS: ATTEND Family Medicine
DX: T81.89XD Other complications of procedures, not elsewhere classified, subsequent encounter (principal); E11.9 Type 2 diabetes mellitus without complications
CPT/HCPCS: 36416; A4218

== ENCOUNTER 2019-03-26 11:05 | Outpatient (CLI) | payer MEDICARE, MEDICAID ==
[2019-03-26] MEDS ORDERED: Lidocaine 2% PF 100 mg/5 ml Syringe ONE (11:29)
[2019-03-26] MEDS ORDERED: Sodium Chloride 0.9% 15 ML NEB ONE (11:29)
--- NOTE | 2019-03-26 16:55 | PRG ---
DATE OF SERVICE: 03/26/2019 HISTORY: Ms. Mouna Mitchell is a very pleasant 48-year-old, who presents to the Wound Center for evaluation of wounds of the plantar surface of the right and left feet. The patient also has a wound of the left lateral foot subsequent to debridement at bedside by Dr. Lay Clement on 01/17/2019. The patient was discharged to home on Augmentin and ciprofloxacin. The patient previously stated that she had followup appointments with Dr. Marie and Dr. Clement. Today, the patient states that she will be seeing Dr. Marie in the near future. The patient states that she has continued to perform dressing changes of Xeroform gauze for her right and left foot wounds since her discharge from [facility]. PHYSICAL EXAMINATION: VITAL SIGNS: Temperature 98.4, pulse 99, respirations 20, and blood pressure 130/60. Accu-Chek 154. EXTREMITIES: A wound of the plantar surface of the right foot is present, which measures approximately 3.5 x 5.0 cm. A wound of the plantar surface of the left foot is present, which measures approximately 2.5 x 2.5 cm. An ulceration of the left lateral foot is present, which measures approximately 3.5 x 3.5 cm. The depth of the wound is approximately 3.5 cm. Granulation tissue is present within the margins of each wound. Nonviable tissue present within the margins of each wound was debrided with an excisional full-thickness debridement. Callus desiccated tissue and undermining at the periphery of each wound were eliminated with the use of scissors. No purulent drainage is associated with any of the wounds. No erythema of the skin surrounding any of the wounds is present. Maceration of the skin of the periwound of the left lateral foot wound is present. No significant edema of the right or left foot is present on exam today. ASSESSMENT AND PLAN: 1. Multiple wounds of right and left feet as described above. Dressing changes of Xeroform gauze will be continued on a daily basis after cleansing and irrigation. The patient will continue to perform her own dressing changes. ABDs, gauze, and Coban or Oz bandage will be utilized as secondary dressings. As stated above, the patient states that she will be seeing Dr. Marie in the near future. I again have encouraged the patient to keep her followup appointments with General Surgery as well as Infectious Diseases. The patient has been asked to schedule a followup visit in the [facility] in 4 weeks. 2. Diabetes mellitus. The patient's Accu-Chek in clinic today is 154. The patient has been reminded that for optimal wound healing, her blood glucoses should remain below 150. 3. History of hypothyroidism. 4. History of obstructive sleep apnea. 5. History of hypertension. Job ID: [id number]
== END 2019-03-26 11:06 | disposition home or self-care (01) ==
LOC: WCC 11:05
PROVIDERS: ATTEND Family Medicine
DX: T81.89XD Other complications of procedures, not elsewhere classified, subsequent encounter (principal); S91.302D Unspecified open wound, left foot, subsequent encounter; S91.301D Unspecified open wound, right foot, subsequent encounter; E11.9 Type 2 diabetes mellitus without complications; E03.9 Hypothyroidism, unspecified; I10 Essential (primary) hypertension

== ENCOUNTER 2019-10-07 15:32 | Outpatient (CLI) | payer MEDICARE, MEDICAID ==
--- NOTE | 2019-10-07 16:06 | ULT ---
RENAL ULTRASOUND HISTORY: Chronic kidney disease COMPARISON: CT abdomen pelvis with contrast dated March 06, 2016 FINDINGS: Right Kidney: Size: 11.3 x 6.8 x 5.4 cm. The right renal cortex measured 1.6 cm. Abnormality: Normal cortical echotexture. No hydronephrosis. Left Kidney: Size: 11.7 x 7.0 x 7.3 cm. The left renal cortical thickness approximately 2.5 cm. Abnormality: Normal cortical echotexture. No hydronephrosis Urinary bladder: Bladder volume was 87.8 cc. No intraluminal mass is evident. IMPRESSION: No focal renal lesion or hydronephrosis.
== END 2019-10-07 15:33 | disposition home or self-care (01) ==
LOC: BICULT 15:32
PROVIDERS: ATTEND Internal Medicine Nephrology
DX: N18.2 Chronic kidney disease, stage 2 (mild) (principal)
CPT/HCPCS: 36415; 76770; 80048; 82306; 82570; 83970; 84100; 84156; 85014; 85018; 86038; 86225

== ENCOUNTER 2019-10-15 14:00 | Outpatient (CLI) | payer MEDICARE, MEDICAID ==
--- NOTE | 2019-10-21 11:21 | OP ---
DATE OF PROCEDURE: 10/15/2019 Arterial Doppler of the lower extremities. Bilateral arterial Doppler examination was performed on 10/14. On the right, common femoral artery waveform is triphasic with good area under the curve. The waveform becomes biphasic at the popliteal and continues biphasically down into the pedal arteries. All arteries have good waveforms and peak area under the curve. Ankle-brachial index is 1.05. On the left, femoral artery waveform is biphasic. There was good peak area under the curve. The popliteal, dorsalis pedis, and posterior tibial artery waveforms are all monophasic with severely depressed waveforms. Ankle-brachial index is 0.96. IMPRESSION: Right-sided superficial femoral artery, mild grade stenosis with normal ankle-brachial index. On the left, there is a severe superficial femoral artery stenosis with near-normal ankle-brachial index. The patient probably needs to be seen in Vascular Clinic for angiography and potential intervention. Job ID: [id number]
== END 2019-10-15 14:01 | disposition home or self-care (01) ==
LOC: ULT 14:00
PROVIDERS: ATTEND Internal Medicine
DX: I73.9 Peripheral vascular disease, unspecified (principal); I70.203 Unspecified atherosclerosis of native arteries of extremities, bilateral legs
CPT/HCPCS: 93922